=== PATIENT | female | born 1985 | race Caucasian/White ===

== ENCOUNTER → 2017-10-09 17:11 | Outpatient (REF) | payer OTHER, SELFPAY | LOC: LAB 17:11 | PROVIDERS: Visit Provider Nurse Practitioner Obstetrics & Gynecology | DX: Z34.90 Encounter for supervision of normal pregnancy, unspecified, unspecified trimester (principal) | CPT/HCPCS: 86403 ==

== ENCOUNTER 2017-10-16 10:37 | Outpatient (CLI) | payer OTHER, SELFPAY ==
[2017-10-16 11:06] VITALS: BP 145/76; PULSE 116; RESP 20; O2SAT 100; BMI 46.1
== END 2017-10-16 11:15 | disposition home or self-care (01) ==
LOC: OBOUT 10:39 → OB 10:41
PROVIDERS: PCP Internal Medicine Adolescent Medicine; Visit Provider Nurse Practitioner Obstetrics & Gynecology
DX: O26.893 Other specified pregnancy related conditions, third trimester (principal); Z3A.37 37 weeks gestation of pregnancy; O76 Abnormality in fetal heart rate and rhythm complicating labor and delivery
CPT/HCPCS: 59025

== ENCOUNTER → 2017-10-23 11:29 | Outpatient (CLI) | payer OTHER, SELFPAY ==
[2017-10-23 11:14] LABS: Basophils % 0.2 % (0.1-2.0); Eosinophils # 0.4 K/mm3 (0.0-0.4); Eosinophils % 3.3 % (0.1-12.0); Hematocrit 34.9 % (37.0-47.0); Hemoglobin 11.4 g/dL (12.2-16.2); Mean Corpuscular HGB Conc 32.7 g/dL (31.8-35.4); Mean Corpuscular Hemoglobin 27.7 pg (27.0-31.2); Mean Corpuscular Volume 84.8 fl (81-99); Mean Platelet Volume 8.4 fl (7.4-10.4); Monocytes # 0.6 K/mm3 (0.1-1.0); Monocytes % 5.6 % (1.7-9.3); Neutrophils # 7.9 K/mm3 (1.8-7.8); Neutrophils % 72.8 % (37.0-80.0); Platelet Count 223 K/mm3 (142-424); Red Blood Count 4.11 M/mm3 (4.20-5.40); Red Cell Distribution Width 14.4 % (11.5-17.5); White Blood Count 10.8 K/mm3 (4.8-10.8)
[2017-10-23 12:44] LABS: Alanine Aminotransferase 12 U/L (12-78); Anion Gap 15.1 mEq/L (5-15); Aspartate Amino Transferase 13 U/L (15-37); Blood Urea Nitrogen 10 mg/dL (7-18); Carbon Dioxide 21 mmol/L (21.0-32.0); Chloride 105 mmol/L (98-107); Creatinine,Serum 0.56 mg/dL (0.55-1.02); Estimated Glomerular Filt Rate 127 ml/min (>60); GFR (African American) 154 ML/MIN (>60); Glucose 95 mg/dL (74-106); Potassium 4.1 mmoL/L (3.5-5.1); Sodium 137 mmol/L (136-145); Uric Acid 5.2 mg/dL (2.6-7.2)
[2017-10-23 13:05] LABS: Activated Partial Thrombo Time 25.4 seconds (23.6-34.0); Fibrinogen 500 mg/dL (204-500); INR 0.91 (0.9-1.1); Prothrombin Time 9.8 seconds (9.4-11.8)
[2017-10-23 13:09] LABS: D-Dimer 777 (0-400)
[2017-10-26 09:15] LABS: Creatinine, Urine 88.2 mg/dL (Not Estab.)
[2017-10-26 19:00] LABS: Creatinine, Ur 24hr 1411 mg/24 hr (800-1800)
== END ==
PROVIDERS: Family Provider Internal Medicine Adolescent Medicine; PCP Internal Medicine Adolescent Medicine; Visit Provider Nurse Practitioner Obstetrics & Gynecology
DX: Z34.90 Encounter for supervision of normal pregnancy, unspecified, unspecified trimester (principal); Z3A.38 38 weeks gestation of pregnancy
CPT/HCPCS: 36415; 80048; 84450; 84460; 84550; 85025; 85378; 85384; 85610; 85730

== ENCOUNTER → 2017-10-24 14:42 | Outpatient (CLI) | payer OTHER, SELFPAY | PROVIDERS: PCP Internal Medicine Adolescent Medicine; Visit Provider Nurse Practitioner Obstetrics & Gynecology | DX: Z34.90 Encounter for supervision of normal pregnancy, unspecified, unspecified trimester (principal) ==

== ENCOUNTER 2017-10-25 09:23 | Inpatient (IN) | payer OTHER, SELFPAY ==
[2017-10-25 09:50] VITALS: BMI 46.1
[2017-10-25 10:25] LABS: Basophils % 0.3 % (0.1-2.0); Eosinophils # 0.3 K/mm3 (0.0-0.4); Eosinophils % 2.8 % (0.1-12.0); Hematocrit 33.1 % (37.0-47.0); Lymphocytes # 1.7 K/mm3 (0.7-4.5); Lymphocytes % 17.9 K/mm3 (10-50); Mean Corpuscular HGB Conc 33.2 g/dL (31.8-35.4); Mean Corpuscular Hemoglobin 27.9 pg (27.0-31.2); Mean Corpuscular Volume 84.2 fl (81-99); Mean Platelet Volume 8.3 fl (7.4-10.4); Monocytes # 0.4 K/mm3 (0.1-1.0); Monocytes % 4.3 % (1.7-9.3); Neutrophils % 74.7 % (37.0-80.0); Platelet Count 221 K/mm3 (142-424); Red Blood Count 3.93 M/mm3 (4.20-5.40); Red Cell Distribution Width 14.3 % (11.5-17.5); White Blood Count 9.4 K/mm3 (4.8-10.8)
[2017-10-25 10:59] VITALS: BP 117/77; PULSE 100; RESP 16; TEMP 36.5; O2SAT 95; BMI 46.1
--- NOTE | 2017-10-25 11:12 | HMH.LABNOT ---
Labor Note - Subjective: Date: 10/25/17 Time: 11:12 irregular contractions - Objective: Cervical Dilation:: 2-3 Effacement:: 75% Station: -1 Membranes: articially ruptured - Fetus: Monitoring?: Yes monitoring type:: Internal and External Comment:: I inserted an internal pressure catheter - Assessment: Labor progressing?: Yes Cephalopelvic disproportion?: No Patient Problems: All Active Problems (Acute) Comment:: She was seen in my office this morning and had increased blood pressure. She thought she was leaking fluid. She was having some fluid leakage every time she had a contraction. I suspect she may have had a high leak. She was group B streptococcus positive and was concerned about this. Since she is 2-3 cm and 75% effaced we elected to enter labor. She is having regular contractions every 6-7 minutes on arrival. - Plan: Anesthesia for epidural?: Yes Continue to labor down?: Yes Plan for ?: No Continue to monitor?: Yes Start pushing?: No
--- NOTE | 2017-10-25 12:50 | P.PN_ITS ---
[facility] Anesthesia Checklist - Patient Identification Patient Identification: Arm Band - Structural Data Admitted From: Home Planned Operative Procedure/s: labor epidural Consent for Planned Operative Procedure(s) Verified: Yes - Additional verifications Anesthesia Reactions: No - Airway Assessment C-Spine Mobility Assessed: Yes TMJ Mobility Assessed: Yes Dentition: Good Dentition - Neurological Assessment Level of Consciousness: Awake, Alert - Anesthesia Plan Anesthesia Risk discussed: Yes Anesthesia Plan: Verified ASA Class: II Anesthesia Type: Epidural [facility] Anesthesia HX I have reviewed the patient's past medical history: Yes Medical History: Reports:: Hyperlipidemia, Hypertension, Renal Disease Denies:: Cancer, Diabetes Mellitus Type 1, MRSA Other Medical History: Reports: Hypothyroidism Laterality Cases: Right: Other Other Surgeries: Yes: Other Amputation: No Fractures: Yes (Broken Ankle 2007) *Family Hx:: Hypertension, Cancer, Diabetes
--- NOTE | 2017-10-25 14:38 | HMH.LABNOT ---
Labor Note - Subjective: Date: 10/25/17 Time: 14:38 regular contraction - Objective: NST:: Reactive Contractions:: every 2-3 minutes Cervical Dilation:: 4 Effacement:: 80% Station: -1 Membranes: ruptured, articially ruptured - Fetus: Monitoring?: Yes monitoring type:: Internal and External Comment:: I applied a scalp clip and reinserted a new pressure catheter. - Assessment: Labor progressing?: Yes Cephalopelvic disproportion?: No Patient Problems: All Active Problems (Acute) - Plan: Anesthesia for epidural?: Yes Continue to labor down?: Yes Plan for ?: No Continue to monitor?: Yes Start pushing?: No
[2017-10-25 15:25] LABS: Microscopic, Urine URINE MICROSCOPIC (MICROSCOPIC)
[2017-10-25 15:29] LABS: Appearance,Urine CLEAR (Clear); Bilirubin,Urine Negative (Negative); Blood, Urine Negative (Negative); Color,Urine YELLOW (Yellow); Glucose,Urine (UA) Negative (Negative); Ketones,Urine Negative (Negative); Leukocyte Esterase,Urine Negative (Negative); Nitrate,Urine Negative (Negative); Protein,Urine Negative (Negative); Specific Gravity, Urine 1.015 (1.005-1.030); Urobilinogen,Urine 0.2 EU/dl (0.2)
[2017-10-25 16:08] LABS: Bacteria,Urine Trace /lpf
--- NOTE | 2017-10-25 17:25 | HMH.LABNOT ---
Labor Note - Subjective: Date: 10/25/17 Time: 17:25 regular contraction - Objective: NST:: Reactive Contractions:: every 2-3 minutes Cervical Dilation:: 6 Effacement:: 100% Station: 0 Membranes: ruptured, articially ruptured - Fetus: Monitoring?: Yes monitoring type:: Internal - Assessment: Labor progressing?: Yes Cephalopelvic disproportion?: No Patient Problems: All Active Problems (Acute) - Plan: Anesthesia for epidural?: Yes Continue to labor down?: Yes Plan for ?: No Continue to monitor?: Yes Start pushing?: No Continue pushing?: No
[2017-10-25 19:36] LABS: Cord Blood PH 7.28 (7.35-7.45)
--- NOTE | 2017-10-25 19:38 | HMH.DN ---
- Delivery Note Delivery Date:: 10/25/17 Delivery Time:: 19:23 Anesthesia Type: Epidural Was labor medically induced?: No Infant delivered prior to 39 weeks?: No Infant Gender: Male at 1 minute: 6 at 5 minutes: 8 AF:: Clear fluid LAC or MLE?: LAC (First-degree tear) Delivery Procedure:: She is a 31-year-old 3 para 2 who is 39 weeks gestational age. She was seen in my office and was having leakage of fluid and occasional contractions. She was found to be 2-3 cm dilated. As result of that she was admitted for labor and delivery. She was started on IV oxytocin and had her membranes ruptured. She progressed to full dilation and delivered spontaneously a liveborn male child at 7:23 PM in the evening of October 25, 2017. I deliver the head the anterior shoulder then delivered followed by the rest of the 's body atraumatically. The oropharynx and nasopharynx were bulb suctioned. We let the cord to continue to pulsate for about 1 minute. We then doubly clamped the cord and cut the cord. The baby was then handed off to the nurses who assigned Apgars of 6 at 1 minute and 8 at 5 minutes. We then obtain cord blood as well as cord pH. The pH was 7.28. Using gentle traction on the cord and countertraction on the fundus I was able to easily deliver the placenta intact. He had a normal three-vessel cord. She had a small first-degree perineal laceration that was repaired with interrupted 3-0 Vicryl Rapide suture. She has O+ blood, she is rubella immune and group B streptococcus positive. She did receive IV antibiotics while in labor. She plans to breast-feed. Estimated blood loss was approximately 400 cc. Placental Delivery Description: Spontaneous
--- NOTE | 2017-10-25 19:41 | HMH.OBAPHP ---
OB - H&P: HPI Antepartum - History of Present Illness Chief complaint: Leaking fluid and occasional contractions - History of Present Criteria for establishing EDC:: LMP confirmed by 2nd trimester US care: good care Ultrasounds: normal 1st trimester US Obstetrical complications: gestational hypertension Medical complications: none Planning to breastfeed?: Yes - Labs Blood type: O (+) positive Rubella: immune RPR/VDRL: nonreactive GBS status: positive HBsAG: negative [facility] History Medical History: Reports:: Hyperlipidemia, Hypertension, Renal Disease Denies:: Cancer, Diabetes Mellitus Type 1, MRSA Other Medical History: Reports: Hypothyroidism Laterality Cases: Right: Other Other Surgeries: Yes: Other Amputation: No Fractures: Yes (Broken Ankle 2007) - *Social History Educational Level: Completed College Smoking Status: Never smoker Alcohol Intake: never Substance Use Type: denies use Occupational Status: employed Housing: house Household Members: spouse, children - Psychiatric History Expresses thoughts of harming self/others: None Suicide Plan Description: No Plan *Family Hx:: Hypertension, Cancer, Diabetes 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 Review of Systems - Review of Systems Review of systems:: pertinent systems reviewed and negative unless documented below Meds Home Medications Medication Instructions Recorded Confirmed Type levothyroxine 25 mcg tablet 25 mcg PO QDAY tab 10/04/17 10/25/17 History 1 tab PO QDAY 10/04/17 10/25/17 History vitamin,calcium,sqlqrdpt-uvrh-demfk acid tablet ranitidine 75 mg tablet 75 mg PO BID PRN 10/04/17 10/25/17 History Labetalol HCl [Normodyne 200mg 200 mg PO BID 10/16/17 10/25/17 History tablet] Fluticasone Propionate [Flonase 1 spr NS DAILY 10/25/17 10/25/17 History 50mcg nasal spray 16gm] Loratadine [Claritin 10mg Tablet] 0 mg PO DAILY 10/25/17 10/25/17 History Tamsulosin HCl [Flomax 0.4mg 0.4 mg PO DAILY 10/25/17 10/25/17 History capsule] Allergies Allergy/AdvReac Type Severity Reaction Status Date / Time Penicillins Allergy Intermediate I-HIVES Verified 10/04/17 13:04 OB - H&P: Exam - Physical Exam Vital signs: Temp Pulse Resp BP Pulse Ox 97.7 F 100 H 16 117/77 95 10/25/17 10:59 10/25/17 10:59 10/25/17 10:59 10/25/17 10:59 10/25/17 10:59 - Constitutional no acute distress - Routine HEENT Exam Head: Present: normocephalic - Routine Neck Exam Present: supple, full ROM - Routine Exam External: Present: normal urethra appearance OB - Results - Labs Labs: Short CBC 10/25/17 Range/Units 09:57 WBC 9.4 (4.8-10.8) K/mm3 Hgb 11.0 L (12.2-16.2) g/dL Hct 33.1 L (37.0-47.0) % Plt Count 221 (142-424) K/mm3 Urine 10/25/17 Range/Units 15:00 Urine Color Yellow (Yellow) Urine Appearance Clear (Clear) Urine pH 7.0 (5.0-8.5) Ur Specific [place] 1.015 (1.005-1.030) Urine Protein Negative (Negative) Urine Glucose (UA) Negative (Negative) OB - A/P Antepartum (1) Group beta Strep positive Current visit: Yes Status: Acute (2) Gestational [-induced] hypertension without significant proteinuria, complicating childbirth Current visit: Yes Status: Acute - Additional Plan Plan: expectant management, induction (We will go ahead and start oxytocin) Planning to breastfeed?: Yes
--- NOTE | 2017-10-25 19:45 | P.HP_ITS ---
OB - H&P: HPI Antepartum - History of Present Illness Chief complaint: Leaking fluid and occasional contractions - History of Present Criteria for establishing EDC:: LMP confirmed by 2nd trimester US care: good care Ultrasounds: normal 1st trimester US Obstetrical complications: gestational hypertension Medical complications: none Planning to breastfeed?: Yes - Labs Blood type: O (+) positive Rubella: immune RPR/VDRL: nonreactive GBS status: positive HBsAG: negative [facility] History Medical History: Reports:: Hyperlipidemia, Hypertension, Renal Disease Denies:: Cancer, Diabetes Mellitus Type 1, MRSA Other Medical History: Reports: Hypothyroidism Laterality Cases: Right: Other Other Surgeries: Yes: Other Amputation: No Fractures: Yes (Broken Ankle 2007) - *Social History Educational Level: Completed College Smoking Status: Never smoker Alcohol Intake: never Substance Use Type: denies use Occupational Status: employed Housing: house Household Members: spouse, children - Psychiatric History Expresses thoughts of harming self/others: None Suicide Plan Description: No Plan *Family Hx:: Hypertension, Cancer, Diabetes 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 Review of Systems - Review of Systems Review of systems:: pertinent systems reviewed and negative unless documented below Meds Home Medications Medication Instructions Recorded Confirmed Type levothyroxine 25 mcg tablet 25 mcg PO QDAY tab 10/04/17 10/25/17 History 1 tab PO QDAY 10/04/17 10/25/17 History vitamin,calcium,beizqdhc-ziry-ttlwp acid tablet ranitidine 75 mg tablet 75 mg PO BID PRN 10/04/17 10/25/17 History Labetalol HCl [Normodyne 200mg 200 mg PO BID 10/16/17 10/25/17 History tablet] Fluticasone Propionate [Flonase 1 spr NS DAILY 10/25/17 10/25/17 History 50mcg nasal spray 16gm] Loratadine [Claritin 10mg Tablet] 0 mg PO DAILY 10/25/17 10/25/17 History Tamsulosin HCl [Flomax 0.4mg 0.4 mg PO DAILY 10/25/17 10/25/17 History capsule] Allergies Allergy/AdvReac Type Severity Reaction Status Date / Time Penicillins Allergy Intermediate I-HIVES Verified 10/04/17 13:04 OB - H&P: Exam - Physical Exam Vital signs: Temp Pulse Resp BP Pulse Ox 97.7 F 100 H 16 117/77 95 10/25/17 10:59 10/25/17 10:59 10/25/17 10:59 10/25/17 10:59 10/25/17 10:59 - Constitutional no acute distress - Routine HEENT Exam Head: Present: normocephalic - Routine Neck Exam Present: supple, full ROM - Routine Exam External: Present: normal urethra appearance OB - Results - Labs Labs: Short CBC 10/25/17 Range/Units 09:57 WBC 9.4 (4.8-10.8) K/mm3 Hgb 11.0 L (12.2-16.2) g/dL Hct 33.1 L (37.0-47.0) % Plt Count 221 (142-424) K/mm3 Urine 10/25/17 Range/Units 15:00 Urine Color Yellow (Yellow) Urine Appearance Clear (Clear) Urine pH 7.0 (5.0-8.5) Ur Specific [place] 1.015 (1.005-1.030) Urine Protein Negative (Negative) Urine Glucose (UA) Negative (Negative) OB - A/P Antepartum (1) Group beta Strep positive Current visit: Yes Status: Acute
[2017-10-26 08:00] VITALS: BP 132/83; PULSE 90; RESP 18; TEMP 36.7; O2SAT 100
[2017-10-26 10:41] LABS: Hematocrit 29.5 % (37.0-47.0); Hemoglobin 9.7 g/dL (12.2-16.2)
--- NOTE | 2017-10-26 11:15 | HMH.ACPN2 ---
Internal Medicine - PN: Subj *Date: 10/26/17 *Time: 11:15 Interval history: She is doing well this morning. She is eating and drinking and ambulating. She is breast-feeding. Exam Vital signs and Labs for Last 24 Hours: Temp Pulse Resp BP Pulse Ox 97.7 F 100 H 16 117/77 95 10/25/17 10:59 10/25/17 10:59 10/25/17 10:59 10/25/17 10:59 10/25/17 10:59 Laboratory Results - last 24 hr 10/25/17 15:00: Urine Color Yellow, Urine Appearance Clear, Urine pH 7.0, Ur Specific [place] 1.015, Urine Protein Negative, Urine Glucose (UA) Negative, Urine Ketones Negative, Urine Blood Negative, Urine Nitrate Negative, Urine Bilirubin Negative, Urine Urobilinogen 0.2, Ur Leukocyte Esterase Negative, Urine RBC None, Urine WBC None, Ur Squamous Epith Cells None, Urine Bacteria Trace 10/25/17 19:30: Cord ABG pH 7.28 L I & O for Last 24 hours: Intake & Output 10/23/17 10/24/17 10/25/17 10/26/17 11:59 11:59 11:59 11:59 Weight 286 lb - Constitutional no acute distress Assessment and Plan (1) Group beta Strep positive Current visit: Yes Status: Acute Category: Medical Code(s): B95.1 - Streptococcus, group B, as the cause of diseases classified elsewhere (2) Gestational [-induced] hypertension without significant proteinuria, complicating childbirth Current visit: Yes Status: Acute Category: Medical Code(s): O13.4 - Gestational [-induced] hypertension without significant proteinuria, complicating childbirth - Assessment and plan all Dx Assessment and Plan for all problems:: She is doing very well and we will plan to send her home tomorrow.
--- NOTE | 2017-10-26 11:18 | P.PN_ITS ---
Internal Medicine - PN: Subj *Date: 10/26/17 *Time: 11:15 Interval history: She is doing well this morning. She is eating and drinking and ambulating. She is breast-feeding. Exam Vital signs and Labs for Last 24 Hours: Temp Pulse Resp BP Pulse Ox 97.7 F 100 H 16 117/77 95 10/25/17 10:59 10/25/17 10:59 10/25/17 10:59 10/25/17 10:59 10/25/17 10:59 Laboratory Results - last 24 hr 10/25/17 15:00: Urine Color Yellow, Urine Appearance Clear, Urine pH 7.0, Ur Specific [place] 1.015, Urine Protein Negative, Urine Glucose (UA) Negative, Urine Ketones Negative, Urine Blood Negative, Urine Nitrate Negative, Urine Bilirubin Negative, Urine Urobilinogen 0.2, Ur Leukocyte Esterase Negative, Urine RBC None, Urine WBC None, Ur Squamous Epith Cells None, Urine Bacteria Trace 10/25/17 19:30: Cord ABG pH 7.28 L I & O for Last 24 hours: Intake & Output 10/23/17 10/24/17 10/25/17 10/26/17 11:59 11:59 11:59 11:59 Weight 286 lb - Constitutional no acute distress Assessment and Plan (1) Group beta Strep positive Current visit: Yes Status: Acute Category: Medical Code(s): B95.1 - Streptococcus, group B, as the cause of diseases classified elsewhere (2) Gestational [-induced] hypertension without significant proteinuria , complicating childbirth Current visit: Yes Status: Acute Category: Medical Code(s): O13.4 - Gestational [-induced] hypertension without significant proteinuria, complicating childbirth - Assessment and plan all Dx Assessment and Plan for all problems:: She is doing very well and we will plan to send her home tomorrow.
[2017-10-26 19:45] VITALS: BP 132/79; PULSE 87; RESP 18; TEMP 36.7; O2SAT 98
[2017-10-27 06:05] VITALS: BP 119/77; PULSE 83; RESP 18; TEMP 36.7
--- NOTE | 2017-10-27 09:12 | HMH.VDDC ---
DS: Providers Date of admission: 10/25/17 09:23 Primary care physician: Renato Beard MD Admitting clinician: Josemanuel Victoria Attending physician on admission: Josemanuel Victoria Attending physician on discharge: Maricel Zapata Discharging clinician: Maricel Zapata Anticipated date of discharge: 10/27/17 DS: Diagnosis - Discharge Diagnosis (1) Normal vaginal delivery of third Status: Acute (2) Anemia associated with acute blood loss Status: Acute (3) Gestational [-induced] hypertension without significant proteinuria, complicating childbirth Status: Acute DS: Medications - Discharge Medications Prescriptions: New Ibuprofen [Motrin 400mg tablet] 400 mg PO Q4HP PRN tablet PRN Reason: Mild To Moderate Pain Sennosides/Docusate Sodium [Senokot-S Tablet] 1 tab PO BIDP PRN tablet PRN Reason: Constipation Acetaminophen [Acetaminophen 325mg tab] 650 mg PO Q4HP PRN tablet PRN Reason: Mild To Moderate Pain Continue levothyroxine 25 mcg tablet 25 mcg PO QDAY tab vitamin,calcium,qvvyyzkt-xtlx-jinmj acid tablet 1 tab PO QDAY ranitidine 75 mg tablet 75 mg PO BID PRN PRN Reason: Acid Reflux Tamsulosin HCl [Flomax 0.4mg capsule] 0.4 mg PO DAILY Loratadine [Claritin 10mg Tablet] 0 mg PO DAILY Fluticasone Propionate [Flonase 50mcg nasal spray 16gm] 1 spr NS DAILY Discontinued Labetalol HCl [Normodyne 200mg tablet] 200 mg PO BID OB - DS: Summary Hospital course: Ms. Varela is a 31 year old female - Peripartum Data Delivery method: spontaneous vaginal delivery complications: none - Status at Discharge Functional status at discharge: independent ambulation Overall status at discharge: patient is progressing back to baseline - Time Spent with Patient Total time spent providing and/or coordinating discharge services: Less than 30 minutes Exam Vital signs and Labs for Last 24 Hours: Temp Pulse Resp BP Pulse Ox 98.1 F 83 18 119/77 98 10/27/17 06:05 10/27/17 06:05 10/27/17 06:05 10/27/17 06:05 10/26/17 19:45 Laboratory Results - last 24 hr 10/26/17 10:35: Hgb 9.7 L, Hct 29.5 L I & O for Last 24 hours: Intake & Output 10/24/17 10/25/17 10/26/17 10/27/17 11:59 11:59 11:59 11:59 Weight 286 lb - Constitutional no acute distress - *Routine Abdominal Exam Present: soft, normoactive bowel sounds - *Routine Exam Comments: appropriate post-vag delivery - *Routine Extremities Exam Present: edema Comments: 1+ - *Routine Skin Exam Present: intact, dry, warm - *Routine Neurological Exam Present: normal speech Results Labs on day of discharge: Labs from last 24 hours 10/26/17 10:35 Hgb 9.7 L Hct 29.5 L - Impressions PPD #2 normal anemia (9.7) GHTN (now resolved) Hypothyroid Discharge Plan - Patient Discharge Instructions ACTIVITY: Ambulate as tolerated, No heavy lifting DIET: regular diet - Follow up Plan Follow up with: Josemanuel Victoria MD [Staff Physician] - Disposition: Home, Self-Skilled Nursing Medications: Home Medications Medication Instructions Recorded Confirmed Type levothyroxine 25 mcg tablet 25 mcg PO QDAY tab 10/04/17 10/25/17 History 1 tab PO QDAY 10/04/17 10/25/17 History vitamin,calcium,qhgfyrgb-plcv-ftqzf acid tablet ranitidine 75 mg tablet 75 mg PO BID PRN 10/04/17 10/25/17 History Labetalol HCl [Normodyne 200mg 200 mg PO BID 10/16/17 10/25/17 History tablet] Fluticasone Propionate [Flonase 1 spr NS DAILY 10/25/17 10/25/17 History 50mcg nasal spray 16gm] Loratadine [Claritin 10mg Tablet] 0 mg PO DAILY 10/25/17 10/25/17 History Tamsulosin HCl [Flomax 0.4mg 0.4 mg PO DAILY 10/25/17 10/25/17 History capsule] Prescriptions/Medication Reconciliation: No Action Tamsulosin HCl [Flomax 0.4mg capsule] 0.4 mg PO DAILY Loratadine [Claritin 10mg Tablet] 0 mg PO NEREYDA
--- NOTE | 2017-10-27 09:19 | P.DS_ITS ---
DS: Providers Date of admission: 10/25/17 09:23 Primary care physician: Renato Beard MD Admitting clinician: Josemanuel Victoria Attending physician on admission: Josemanuel Victoria Attending physician on discharge: Maricel Zapata Discharging clinician: Maricel Zapata Anticipated date of discharge: 10/27/17 DS: Diagnosis - Discharge Diagnosis (1) Normal vaginal delivery of third Status: Acute (2) Anemia associated with acute blood loss Status: Acute (3) Gestational [-induced] hypertension without significant proteinuria , complicating childbirth Status: Acute DS: Medications - Discharge Medications Prescriptions: New Ibuprofen [Motrin 400mg tablet] 400 mg PO Q4HP PRN tablet PRN Reason: Mild To Moderate Pain Sennosides/Docusate Sodium [Senokot-S Tablet] 1 tab PO BIDP PRN tablet PRN Reason: Constipation Acetaminophen [Acetaminophen 325mg tab] 650 mg PO Q4HP PRN tablet PRN Reason: Mild To Moderate Pain Continue levothyroxine 25 mcg tablet 25 mcg PO QDAY tab vitamin,calcium,kkkwxfrr-uojy-uuntt acid tablet 1 tab PO QDAY ranitidine 75 mg tablet 75 mg PO BID PRN PRN Reason: Acid Reflux Tamsulosin HCl [Flomax 0.4mg capsule] 0.4 mg PO DAILY Loratadine [Claritin 10mg Tablet] 0 mg PO DAILY Fluticasone Propionate [Flonase 50mcg nasal spray 16gm] 1 spr NS DAILY Discontinued Labetalol HCl [Normodyne 200mg tablet] 200 mg PO BID OB - DS: Summary Hospital course: Ms. Varela is a 31 year old female - Peripartum Data Delivery method: spontaneous vaginal delivery complications: none - Status at Discharge Functional status at discharge: independent ambulation Overall status at discharge: patient is progressing back to baseline - Time Spent with Patient Total time spent providing and/or coordinating discharge services: Less than 30 minutes Exam Vital signs and Labs for Last 24 Hours: Temp Pulse Resp BP Pulse Ox 98.1 F 83 18 119/77 98 10/27/17 06:05 10/27/17 06:05 10/27/17 06:05 10/27/17 06:05 10/26/17 19:45 Laboratory Results - last 24 hr 10/26/17 10:35: Hgb 9.7 L, Hct 29.5 L I & O for Last 24 hours: Intake & Output 10/24/17 10/25/17 10/26/17 10/27/17 11:59 11:59 11:59 11:59 Weight 286 lb - Constitutional no acute distress - *Routine Abdominal Exam Present: soft, normoactive bowel sounds - *Routine Exam Comments: appropriate post-vag delivery - *Routine Extremities Exam Present: edema Comments: 1+ - *Routine Skin Exam Present: intact, dry, warm - *Routine Neurological Exam Present: normal speech Results Labs on day of discharge: Labs from last 24 hours 10/26/17 10:35 Hgb 9.7 L Hct 29.5 L - Impressions PPD #2 normal anemia (9.7) GHTN (now resolved) Hypothyroid Discharge Plan - Patient Discharge Instructions ACTIVITY: Ambulate as tolerated, No heavy lifting DIET: regular diet - Follow up Plan Follow up with: Josemanuel Victoria MD [Staff Physician] - Disposition: Home, Self-[facility] Medications: Home Medications Medication Instructions Recorded Confirmed Type levothyroxine 25 mcg tablet 25 mcg PO QDAY tab
--- NOTE | 2017-10-27 12:40 | PC.NURSE ---
PT DISCHARGED AT 1240; PT WANTS TO FINISH LUNCH AND NURSE NB PRIOR TO LEAVING; PT WILL NOTIFY RN WHEN READY TO LEAVE
--- NOTE | 2017-10-27 14:00 | PC.NURSE ---
PT LEAVING UNIT AT THIS TIME; D/C HOME
--- NOTE | 2017-10-27 14:00 | PC.NURSE ---
PT LEFT UNIT AT THIS TIME
== END 2017-10-27 12:40 | disposition home or self-care (01) | DRG 775 ==
PROVIDERS: Admitting Provider Nurse Practitioner Obstetrics & Gynecology; PCP Internal Medicine Adolescent Medicine; Visit Provider Nurse Practitioner Obstetrics & Gynecology
DX: O13.3 Gestational [pregnancy-induced] hypertension without significant proteinuria, third trimester (principal); O70.0 First degree perineal laceration during delivery; Z37.0 Single live birth; Z3A.39 39 weeks gestation of pregnancy
CPT/HCPCS: 59409; 36415; 59025; 81001; 82800; 85014; 85018; 85025; 86850; C1758; J2405

== ENCOUNTER → 2017-12-12 11:56 | Outpatient (CLI) | payer OTHER, SELFPAY ==
[2017-12-12 12:51] LABS: Basophils % 0.4 % (0.1-2.0); Eosinophils # 0.3 K/mm3 (0.0-0.4); Eosinophils % 4.4 % (0.1-12.0); Hematocrit 47.2 % (37.0-47.0); Hemoglobin 14.7 g/dL (12.2-16.2); Lymphocytes # 2.5 K/mm3 (0.7-4.5); Lymphocytes % 35.4 K/mm3 (10-50); Mean Corpuscular HGB Conc 31.2 g/dL (31.8-35.4); Mean Corpuscular Hemoglobin 26.8 pg (27.0-31.2); Mean Platelet Volume 9.3 fl (7.4-10.4); Monocytes # 0.4 K/mm3 (0.1-1.0); Monocytes % 5.5 % (1.7-9.3); Neutrophils # 3.9 K/mm3 (1.8-7.8); Neutrophils % 54.3 % (37.0-80.0); Platelet Count 265 K/mm3 (142-424); Red Blood Count 5.49 M/mm3 (4.20-5.40); Red Cell Distribution Width 13.8 % (11.5-17.5); White Blood Count 7.1 K/mm3 (4.8-10.8)
[2017-12-12 13:22] LABS: Anion Gap 16.5 mEq/L (5-15); Blood Urea Nitrogen 20 mg/dL (7-18); Carbon Dioxide 25 mmol/L (21.0-32.0); Chloride 105 mmol/L (98-107); Creatinine,Serum 0.94 mg/dL (0.55-1.02); Estimated Glomerular Filt Rate 69 ml/min (>60); GFR (African American) 84 ML/MIN (>60); Glucose 97 mg/dL (74-106); Potassium 4.5 mmoL/L (3.5-5.1); Sodium 142 mmol/L (136-145)
[2017-12-12 16:50] LABS: HCG Qualitative, Serum Negative (Negative)
== END ==
PROVIDERS: PCP Internal Medicine Adolescent Medicine; Visit Provider Nurse Practitioner Obstetrics & Gynecology
DX: Z01.812 Encounter for preprocedural laboratory examination (principal); Z30.9 Encounter for contraceptive management, unspecified
CPT/HCPCS: 36415; 80048; 84703; 85025

== ENCOUNTER 2017-12-13 06:01 | Day surgery (SDC) | payer OTHER, SELFPAY ==
[2017-12-11 16:21] VITALS: BMI 41.5
[2017-12-13] VITALS (13 sets, daily range): BP systolic 121–156; BP diastolic 66–95; PULSE 48–87; RESP 16–20; TEMP 36.7–36.8; O2SAT 95–98
--- NOTE | 2017-12-13 07:08 | HMH.ANESCL ---
[facility] Anesthesia Checklist - Patient Identification Patient Identification: Arm Band, Verbal (Name & ) - Structural Data Admitted From: Home Planned Operative Procedure/s: bso Consent for Planned Operative Procedure(s) Verified: Yes Verified Documents: Surgical Consent - NPO Status Verified Time NPO: 00:00 - Chart Verification Results Verified: CBC, BMP - Additional verifications Patient : No Anesthesia Reactions: No Hx Blood Transfusions: No Blood Transfusion Reaction: No Cephalosporin Allergy: No Previous Colonoscopy: No - Cardiovascular Assessment Heart Sounds: S1 & S2 Pulse Strength: Baseline Pulse Rhythm: Regular Peripheral Edema: No - Airway Assessment C-Spine Mobility Assessed: Yes TMJ Mobility Assessed: Yes Dentition: Good Dentition - Neurological Assessment Level of Consciousness: Awake, Alert, Appropriate Hx Seizures: No Numbness or tingling in extremities: No - Anesthesia Plan Anesthesia Risk discussed: Yes Anesthesia Plan: Verified ASA Class: II Anesthesia Type: General [facility] Anesthesia HX I have reviewed the patient's past medical history: Yes Medical History: Reports:: Hyperlipidemia, Hypertension, Renal Disease Denies:: Cancer, Diabetes Mellitus Type 1, Diabetes Mellitus Type 2, Internal Pacemaker, MRSA, Seizures Other Medical History: Reports: Hypothyroidism Laterality Cases: Right: Other, Bilateral: Tonsillectomy Other Surgeries: Yes: Other. No: Pacemaker Amputation: No Fractures: Yes (Broken Ankle 2007) *Family Hx:: Hypertension, Cancer, Diabetes
--- NOTE | 2017-12-13 07:11 | P.PN_ITS ---
[facility] Anesthesia Checklist - Patient Identification Patient Identification: Arm Band, Verbal (Name & ) - Structural Data Admitted From: Home Planned Operative Procedure/s: bso Consent for Planned Operative Procedure(s) Verified: Yes Verified Documents: Surgical Consent - NPO Status Verified Time NPO: 00:00 - Chart Verification Results Verified: CBC, BMP - Additional verifications Patient : No Anesthesia Reactions: No Hx Blood Transfusions: No Blood Transfusion Reaction: No Cephalosporin Allergy: No Previous Colonoscopy: No - Cardiovascular Assessment Heart Sounds: S1 & S2 Pulse Strength: Baseline Pulse Rhythm: Regular Peripheral Edema: No - Airway Assessment C-Spine Mobility Assessed: Yes TMJ Mobility Assessed: Yes Dentition: Good Dentition - Neurological Assessment Level of Consciousness: Awake, Alert, Appropriate Hx Seizures: No Numbness or tingling in extremities: No - Anesthesia Plan Anesthesia Risk discussed: Yes Anesthesia Plan: Verified ASA Class: II Anesthesia Type: General [facility] Anesthesia HX I have reviewed the patient's past medical history: Yes Medical History: Reports:: Hyperlipidemia, Hypertension, Renal Disease Denies:: Cancer, Diabetes Mellitus Type 1, Diabetes Mellitus Type 2, Internal Pacemaker, MRSA, Seizures Other Medical History: Reports: Hypothyroidism Laterality Cases: Right: Other, Bilateral: Tonsillectomy Other Surgeries: Yes: Other. No: Pacemaker Amputation: No Fractures: Yes (Broken Ankle 2007) *Family Hx:: Hypertension, Cancer, Diabetes
--- NOTE | 2017-12-13 08:21 | HMH.OPNOTE ---
Date of procedure: 12/13/17 Pre-op Diagnosis:: Desire for sterilization Post-op Diagnosis:: Desire for sterilization Procedure performed:: Laparoscopic bilateral salpingectomy Surgeon:: Josemanuel Victoria MD Anesthesia: STACY Estimated blood loss (mL): 25 Clinical Note:: She is a 32-year-old 3 para 3 who is about 6 weeks . She expressed desire for sterilization. The risks and benefits as well as the irreversibility of bilateral salpingectomy were discussed with the patient. Operative findings:: Had a normal-appearing anteverted uterus. The tubes and ovaries appeared normal. The upper abdomen was visualized and appeared normal. The deep pelvis appear normal. Both tubes were followed to their fimbriated end and were normal. The bladder flap was normal. The appendix is visualized and appeared normal. Operative note:: She was taken to the operating room where general anesthesia was found to be adequate. She was prepped and draped in normal sterile fashion in the semilithotomy position. A weighted speculum was placed in the vagina and the anterior lip of the cervix was grasped with a tenaculum. Alvarez dilators used to dilate the cervix to approximately 4 mm. I then inserted a Leah uterine manipulator and insufflated the balloon. I injected 10 cc of 0.5% ropivacaine around the umbilicus and made a small incision within the umbilicus. I then inserted a Veress needle into the abdominal cavity. The abdominal cavity was insufflated with carbon dioxide gas to a pressure of 20 mmHg. Then inserted a 5 mm trocar under direct vision. I injected through and through at the pubic hairline, made a small incision here and inserted an 8 mm trocar under direct vision. I then identified the inferior epigastric arteries, went lateral to these and injected through and through. I inserted a 5 mm trocar here under direct vision. I then grasped the left tube close to the cornua and using cautery I cauterized along the tube adjacent to the cornea. I then cut through the tube adjacent to the cornea. I then grasped the distal end of the tube and using harmonic scalpel I cut along the mesosalpinx. The tube was then removed. This was similar performed on the patient's right side. There is a small amount of ooze from the fundus of the uterus where I touch the uterus with the harmonic scalpel and I elected to place a large piece of Surgicel over this area. After once again assuring hemostasis we then injected approximately 30 cc of 0.5% ropivacaine into the pelvis. The gas was out of the abdomen and once again hemostasis was assured. We then removed the secondary trochars under direct vision. The camera was then removed. The 8 mm trocar site was then closed deeply with 2-0 Vicryl suture followed by interrupted subcuticular 4-0 Monocryl suture. The 5 mm trocar sites were closed with septated or 4-0 Monocryl suture. Sterile dressings were applied. The patient tolerated the procedure well and was taken to the recovery room in excellent condition. All sponge instrument and needle counts were correct. The estimated blood loss was less than 25 cc. Condition: stable Disposition: PACU Complications:: None
--- NOTE | 2017-12-13 08:31 | P.PN_ITS ---
[facility] Anesthesia Record Part I Intake, IV Amount: 700 Estimated blood loss (mL): 25 Urine output (mL): 20 Blood Products used (#): none Blood Pressure: 154/76 SaO2: 95 Pulse Rate: 72 Respiratory Rate: 18 Temperature: 98.2 F Patient is:: Drowsy, Stable Stable to PACU at:: 08:30
--- NOTE | 2017-12-13 08:32 | P.PN_ITS ---
[facility] Anesthesia Record Part II Discharge Time: 09:00 Destination: Surgical Day Care (OP Surgery) PACU nurse assessment reviewed?: Yes Patient Condition:: Good Anesthesia Complications:: None
== END 2017-12-13 10:20 | disposition home or self-care (01) ==
LOC: OR 06:01
PROVIDERS: Family Provider Internal Medicine Adolescent Medicine; PCP Internal Medicine Adolescent Medicine; Visit Provider Nurse Practitioner Obstetrics & Gynecology
PROC: (CPT 58661; principal; 2017-12-13 07:30)
DX: Z30.2 Encounter for sterilization (principal)
CPT/HCPCS: 58661; 96374; J0131; J2405; J2710

== ENCOUNTER → 2018-03-13 08:10 | Outpatient (CLI) | payer OTHER, SELFPAY ==
--- NOTE | 2018-03-13 08:16 | US_ITS ---
US gallbladder HISTORY: Right upper quadrant pain nausea and vomiting ITS.REASON: EPIGASTRIC PAIN ORDERING PHYSICIAN: Lg Walker MD PATIENT AGE: 32 years Comparison: None FINDINGS: PANCREAS: Unremarkable. No obvious mass or abnormal fluid collection. No ductal dilatation LIVER: No focal liver lesions demonstrated. Homogeneous echogenicity. No intrahepatic biliary ductal dilatation evident RIGHT KIDNEY: Unremarkable. Normal size and echogenicity. No hydronephrosis. Small right peripelvic renal cyst at 11 mm GALLBLADDER: No gallstones, gallbladder wall thickening, pericholecystic fluid, or biliary dilatation. IMPRESSION: Negative gallbladder/right upper quadrant ultrasound
--- NOTE | 2018-03-13 08:16 | FL_ITS ---
FL upper GI esophagus w/air HISTORY: ITS.REASON: EPIGASTRIC PAIN ORDERING PHYSICIAN: Lg Walker MD PATIENT AGE: 32 years Comparison: None FINDINGS: The esophagus, stomach, and duodenum have an unremarkable appearance. There is a small sliding hiatal hernia. No ulcer or mass evident. No mucosal abnormalities apparent. There is normal peristalsis. The duodenal C-loop is nondisplaced. Reflux was not demonstrated during the exam FLUOROSCOPY TIME : 1 minute and 48 seconds. IMPRESSION: Small sliding hiatal hernia otherwise negative upper GI
== END ==
PROVIDERS: Family Provider Internal Medicine Adolescent Medicine; PCP Internal Medicine Adolescent Medicine; Visit Provider Surgery
DX: R10.13 Epigastric pain (principal); R13.10 Dysphagia, unspecified
CPT/HCPCS: 74241; 76705

== ENCOUNTER → 2018-04-16 08:02 | Outpatient (CLI) | payer OTHER, SELFPAY ==
[2018-04-16 09:48] LABS: Alanine Aminotransferase 28 U/L (12-78); Albumin Level 4.1 gm/dL (3.4-5.0); Albumin/Globulin Ratio 1.3 (1.1-1.8); Alkaline Phosphatase 134 U/L (46-116); Anion Gap 14.4 mEq/L (5-15); Aspartate Amino Transferase 17 U/L (15-37); Bilirubin,Total 0.4 mg/dL (0.2-1.0); Blood Urea Nitrogen 18 mg/dL (7-18); Calcium 9.3 mg/dL (8.5-10.1); Carbon Dioxide 25 mmol/L (21.0-32.0); Chloride 108 mmol/L (98-107); Chol/HDL Ratio 4.7 (1-3.5); Cholesterol 221 mg/dL (140-200); Creatinine,Serum 0.82 mg/dL (0.55-1.02); Estimated Glomerular Filt Rate 81 ml/min (>60); GFR (African American) 98 ML/MIN (>60); Globulin 3.2 gm/dl (1.3-3.2); Glucose 113 mg/dL (74-106); HDL Cholesterol 47 mg/dL (29-89); LDL Cholesterol 148 mg/dL (0-130); Potassium 4.4 mmoL/L (3.5-5.1); Sodium 143 mmol/L (136-145); Thyroid Stimulating Hormone 2.18 uIU/ml (0.358-3.740); Total Protein,Serum 7.3 gm/dL (6.4-8.2); Triglycerides 131 mg/dL (30-200); VLDL Cholesterol 26 mg/dL (0-40)
[2018-04-16 10:54] LABS: Basophils % 0.5 % (0.1-2.0); Eosinophils # 0.2 K/mm3 (0.0-0.4); Eosinophils % 2.4 % (0.1-12.0); Hematocrit 46.4 % (37.0-47.0); Hemoglobin 14.8 g/dL (12.2-16.2); Lymphocytes # 1.7 K/mm3 (0.7-4.5); Lymphocytes % 24.3 K/mm3 (10-50); Mean Corpuscular HGB Conc 31.9 g/dL (31.8-35.4); Mean Corpuscular Hemoglobin 26.6 pg (27.0-31.2); Mean Corpuscular Volume 83.4 fl (81-99); Mean Platelet Volume 10.6 fl (7.4-10.4); Monocytes # 0.4 K/mm3 (0.1-1.0); Monocytes % 5.8 % (1.7-9.3); Neutrophils # 4.7 K/mm3 (1.8-7.8); Neutrophils % 66.9 % (37.0-80.0); Platelet Count 237 K/mm3 (142-424); Red Blood Count 5.57 M/mm3 (4.20-5.40); Red Cell Distribution Width 13.7 % (11.5-17.5)
== END ==
PROVIDERS: Visit Provider Nurse Practitioner Family
DX: E78.1 Pure hyperglyceridemia (principal); E03.9 Hypothyroidism, unspecified; T73.2XXA Exhaustion due to exposure, initial encounter
CPT/HCPCS: 36415; 80053; 80061; 84443; 85025

== ENCOUNTER → 2018-07-01 15:47 | Outpatient (CLI) | payer OTHER, SELFPAY ==
--- NOTE | 2018-07-01 15:51 | MR_ITS ---
MR head/brain wo/w con HISTORY: Headache with dizziness, nausea, blurred vision, left sinus tach minus ITS.REASON: VERTIGO, [place]STAGMUS ORDERING PHYSICIAN: Renato Beard MD PATIENT AGE: 32 years Comparison: None TECHNIQUE: Standard multiplanar multiecho sequences are performed without and with gadolinium enhancement. FINDINGS: No midline shift, mass effect, intracranial hemorrhage, hydrocephalus, or acute infarction is evident. No enhancing lesions are evident. No intra or extra-axial masses. No large aneurysms. There is normal mejia-white matter differentiation. There is a small focus of increased T2 signal within the occipital lobe on the left just posterior to the occipital horn of the lateral ventricle. This measures approximately 3 mm and is nonspecific. No other white matter abnormalities are evident. The pituitary has an unremarkable appearance as does the optic chiasm. No cerebellar ectopia. The cerebellopontine angles, cerebellum, and brainstem are unremarkable. No mastoid effusion or sinus air-fluid level IMPRESSION: 1. No acute intracranial findings. 2. Small T2 white matter hyperintensity in the left occipital lobe. This is of questioned clinical significance and nonspecific and could be due to small gliotic focus or small area of demyelinization. The findings are not typical for multiple sclerosis although this is a common area for MS involvement. Therefore, correlation with clinical parameters are needed.
--- NOTE | 2018-07-01 17:10 | HMH.ITSHM ---
levothyroxine 0.25mg prilosec 20mg flonase spray krill oil xyzal
== END ==
PROVIDERS: Family Provider Internal Medicine Adolescent Medicine; PCP Internal Medicine Adolescent Medicine; Visit Provider Internal Medicine Adolescent Medicine
DX: R42 Dizziness and giddiness (principal); H55.00 Unspecified nystagmus
CPT/HCPCS: 70553; A9576

== ENCOUNTER → 2018-08-08 14:58 | Outpatient (CLI) | payer OTHER, SELFPAY ==
[2018-08-08 15:50] LABS: Basophils % 0.3 % (0.1-2.0); Eosinophils # 0.1 K/mm3 (0.0-0.4); Eosinophils % 2.1 % (0.1-12.0); Hematocrit 41.7 % (37.0-47.0); Hemoglobin 13.4 g/dL (12.2-16.2); Lymphocytes # 2.3 K/mm3 (0.7-4.5); Lymphocytes % 34.8 K/mm3 (10-50); Mean Corpuscular Hemoglobin 27.6 pg (27.0-31.2); Mean Corpuscular Volume 86.3 fl (81-99); Mean Platelet Volume 9.8 fl (7.4-10.4); Monocytes # 0.3 K/mm3 (0.1-1.0); Monocytes % 4.3 % (1.7-9.3); Neutrophils # 3.9 K/mm3 (1.8-7.8); Neutrophils % 58.6 % (37.0-80.0); Platelet Count 237 K/mm3 (142-424); Red Blood Count 4.84 M/mm3 (4.20-5.40); Red Cell Distribution Width 14.3 % (11.5-17.5); White Blood Count 6.7 K/mm3 (4.8-10.8)
[2018-08-08 17:09] LABS: Alanine Aminotransferase 21 U/L (12-78); Albumin Level 3.9 gm/dL (3.4-5.0); Albumin/Globulin Ratio 1.2 (1.1-1.8); Alkaline Phosphatase 137 U/L (46-116); Anion Gap 15.9 mEq/L (5-15); Aspartate Amino Transferase 14 U/L (15-37); Bilirubin,Total 0.3 mg/dL (0.2-1.0); Blood Urea Nitrogen 15 mg/dL (7-18); Calcium 9.2 mg/dL (8.5-10.1); Carbon Dioxide 26 mmol/L (21.0-32.0); Chloride 105 mmol/L (98-107); Creatinine,Serum 0.94 mg/dL (0.55-1.02); Estimated Glomerular Filt Rate 69 ml/min (>60); GFR (African American) 84 ML/MIN (>60); Globulin 3.3 gm/dl (1.3-3.2); Glucose 103 mg/dL (74-106); Potassium 3.9 mmoL/L (3.5-5.1); Sodium 143 mmol/L (136-145); Thyroid Stimulating Hormone 0.76 uIU/ml (0.358-3.740); Total Protein,Serum 7.2 gm/dL (6.4-8.2)
[2018-08-11 04:56] LABS: Vitamin B12 1468 pg/mL (232-1245)
[2018-08-11 12:07] LABS: Vitamin D 25 Hydroxy 36.7 ng/mL (30.0-100.0)
== END ==
PROVIDERS: Visit Provider Nurse Practitioner Family
DX: E03.9 Hypothyroidism, unspecified (principal); E78.2 Mixed hyperlipidemia; R53.81 Other malaise; H81.10 Benign paroxysmal vertigo, unspecified ear
CPT/HCPCS: 36415; 80053; 82607; 82652; 84443; 85025

== ENCOUNTER → 2019-03-17 08:04 | Outpatient (CLI) | payer OTHER, SELFPAY ==
--- NOTE | 2019-03-17 08:09 | XR_ITS ---
XR hip LT 2-3V w/pelvis HISTORY: ORDERING PHYSICIAN: Nancy Rubio APRN PATIENT AGE: 33 years COMPARISON: None FINDINGS: No fracture or dislocation is evident. No significant degenerative change. No lytic or blastic change. Unremarkable soft tissues IMPRESSION: Negative hip
--- NOTE | 2019-03-17 08:09 | XR_ITS ---
XR hip RT 2-3V w/pelvis HISTORY: ITS.REASON: LOW BACK PAIN,LILIA HIP PAIN ORDERING PHYSICIAN: Nancy Rubio APRN PATIENT AGE: 33 years COMPARISON: None FINDINGS: No fracture or dislocation is evident. No significant degenerative change. No lytic or blastic change. Unremarkable soft tissues IMPRESSION: Negative hip
--- NOTE | 2019-03-17 08:09 | XR_ITS ---
XR sacroiliac joint BI min 3V CLINICAL INDICATION: ITS.REASON: LOW BACK PAIN,HIP PAIN ORDERING PHYSICIAN: Nancy Rubio APRN PATIENT AGE: 33 years Comparison: None FINDINGS: Unremarkable. SI joints. No evidence of fusion, sclerosis, or significant degenerative change. IMPRESSION: Negative SI joints
== END ==
PROVIDERS: PCP Internal Medicine Adolescent Medicine; Visit Provider Clinical Nurse Specialist Family Health
DX: M54.5 Low back pain (principal); M25.551 Pain in right hip; M25.552 Pain in left hip
CPT/HCPCS: 72202; 73502

== ENCOUNTER → 2019-11-12 08:55 | Outpatient (CLI) | payer OTHER, SELFPAY ==
[2019-11-12 09:26] LABS: Basophils % 0.5 % (0.1-2.0); Eosinophils # 0.1 K/mm3 (0.0-0.4); Eosinophils % 1.3 % (0.1-12.0); Hematocrit 42.9 % (37.0-47.0); Hemoglobin 13.7 g/dL (12.2-16.2); Lymphocytes # 1.6 K/mm3 (0.7-4.5); Lymphocytes % 21.4 % (10-50); Mean Corpuscular Hemoglobin 28.6 pg (27.0-31.2); Mean Corpuscular Volume 89.2 fl (81-99); Mean Platelet Volume 8.6 fl (7.4-10.4); Monocytes # 0.3 K/mm3 (0.1-1.0); Monocytes % 4.2 % (1.7-9.3); Neutrophils # 5.3 K/mm3 (1.8-7.8); Neutrophils % 72.6 % (37.0-80.0); Platelet Count 301 K/mm3 (142-424); Red Blood Count 4.81 M/mm3 (4.20-5.40); Red Cell Distribution Width 13.6 % (11.5-17.5); White Blood Count 7.2 K/mm3 (4.8-10.8)
[2019-11-12 10:02] LABS: Alanine Aminotransferase 33 U/L (12-78); Albumin Level 4.2 gm/dL (3.4-5.0); Albumin/Globulin Ratio 1.4 (1.1-1.8); Alkaline Phosphatase 71 U/L (46-116); Anion Gap 13.1 mEq/L (5-15); Aspartate Amino Transferase 18 U/L (15-37); Bilirubin,Total 0.4 mg/dL (0.2-1.0); Blood Urea Nitrogen 22 mg/dL (7-18); Carbon Dioxide 27 mmol/L (21.0-32.0); Chloride 105 mmol/L (98-107); Chol/HDL Ratio 4.1 (1-3.5); Cholesterol 224 mg/dL (140-200); Creatinine,Serum 0.74 mg/dL (0.55-1.02); Estimated Glomerular Filt Rate 90 ml/min (>60); Free Thyroxine Index 2.5 ug/dL (5.93-13.13); GFR (African American) 109 ML/MIN (>60); Glucose 88 mg/dL (74-106); HDL Cholesterol 55 mg/dL (29-89); LDL Cholesterol 147 mg/dL (0-130); Potassium 4.1 mmoL/L (3.5-5.1); Sodium 141 mmol/L (136-145); Thyroid Stimulating Hormone 0.99 uIU/ml (0.358-3.740); Total Protein,Serum 7.2 gm/dL (6.4-8.2); Triglycerides 111 mg/dL (30-200); Triiodothryronine (T3) Uptake 35 % (31-39); VLDL Cholesterol 22 mg/dL (0-40)
[2019-11-13 17:02] LABS: Vitamin B12 803 pg/mL (232-1245); Vitamin D 25 Hydroxy 40.8 ng/mL (30.0-100.0)
== END ==
PROVIDERS: Visit Provider Internal Medicine Adolescent Medicine
DX: R00.2 Palpitations (principal); E03.9 Hypothyroidism, unspecified
CPT/HCPCS: 36415; 80053; 80061; 82533; 82607; 82652; 84436; 84443; 84479; 85025

== ENCOUNTER → 2019-12-09 14:18 | Outpatient (CLI) | payer OTHER, SELFPAY ==
[2019-12-09 14:22] LABS: Adenovirus F 40/41, stool Not Detected (NotDetected); Astrovirus Not Detected (NotDetected); Campylobacter Not Detected (NotDetected); Clostridium Difficile A/B, PCR Not Detected (NotDetected); Cryptosporidium Not Detected (NotDetected); Cyclospora Cayetanesis Not Detected (NotDetected); Entamoeba histolytica Not Detected (NotDetected); Enteroaggregative E coli Not Detected (NotDetected); Enteropathogenic E coli Not Detected (NotDetected); Enterotoxigenic E coli Not Detected (NotDetected); Giardia lamblia Not Detected (NotDetected); Norovirus Not Detected (NotDetected); Plesimonas Shigalloides, PCR Not Detected (NotDetected); Rotavirus A Not Detected (NotDetected); Salmonella, PCR Not Detected (NotDetected); Sapovirus Not Detected (NotDetected); Shiga-like toxin E coli Not Detected (NotDetected); Shigella Enterovasive E coli Not Detected (NotDetected); Vibrio Cholerae Not Detected (NotDetected); Vibrio, PCR Not Detected (NotDetected); Yersinia Entercolitica, PCR Not Detected (NotDetected)
== END ==
PROVIDERS: Visit Provider Internal Medicine Adolescent Medicine
DX: R19.7 Diarrhea, unspecified (principal)
CPT/HCPCS: 87507

== ENCOUNTER → 2020-01-15 14:21 | Outpatient (CLI) | payer OTHER, SELFPAY ==
[2020-01-17 11:03] LABS: DHEA-Sulfate 169.6 ug/dL (84.8-378.0); Testosterone,Total 16 ng/dL (8-48)
[2020-01-17 13:43] LABS: LH 0.9 mIU/mL (.)
[2020-01-21 07:19] LABS: Estrogen 145 pg/mL (.)
== END ==
PROVIDERS: Visit Provider Nurse Practitioner Family
DX: E65 Localized adiposity (principal); E78.1 Pure hyperglyceridemia; E88.81 Metabolic syndrome and other insulin resistance
CPT/HCPCS: 36415; 82626; 82672; 83001; 83002; 84403

== ENCOUNTER → 2020-01-21 08:25 | Outpatient (CLI) | payer OTHER, SELFPAY ==
--- NOTE | 2020-01-21 08:27 | US_ITS ---
PROCEDURE: US ABDOMEN LIMITED CLINICAL INDICATION: RUQ PAIN Right upper quadrant pain with nausea and diarrhea COMPARISON: No exams were available for comparison FINDINGS: PANCREAS: Unremarkable. No obvious mass or abnormal fluid collection. No ductal dilatation LIVER: No focal liver lesions demonstrated. Homogeneous echogenicity. No intrahepatic biliary ductal dilatation evident. There is appropriate direction of blood flow within a non dilated portal vein RIGHT KIDNEY: Unremarkable. Normal size and echogenicity. No hydronephrosis GALLBLADDER: No gallstones, gallbladder wall thickening, pericholecystic fluid, or biliary dilatation. IMPRESSION: Unremarkable limited abdominal ultrasound as detailed above disc Dictated by: Fabio Loera MD 01/21/2020 15:13 Electronically signed by Fabio Loera MD in [place] 01/21/2020 15:13
== END ==
PROVIDERS: PCP Internal Medicine Adolescent Medicine; Visit Provider Clinical Nurse Specialist Family Health
DX: R10.11 Right upper quadrant pain (principal)
CPT/HCPCS: 76705

== ENCOUNTER → 2020-01-27 08:23 | Outpatient (CLI) | payer OTHER, SELFPAY ==
--- NOTE | 2020-01-27 08:24 | NM_ITS ---
PROCEDURE: NM HEPATOBILIARY W PHARM CLINICAL INDICATION: right up Quad Right upper quadrant pain COMPARISON: US ABDOMEN LIMITED from 01/21/2020 TECHNIQUE: DOSE: 8.10 mCi technetium Choletec and 2.1 mcg of CCK. No pain reported with CCK infusion FINDINGS: Homogeneous activity is present within the hepatic parenchyma. Activity is present in the gallbladder by 10 minutes. Activity is present in the small bowel by 15 minutes. The gallbladder ejection fraction is calculated to be 18 percent. CCK-The patient did not report pain or other symptoms during CCK infusion. IMPRESSION: There is no evidence of common or cystic duct obstruction. Low gallbladder ejection fraction of 18 % Dictated by: Fabio Loera MD 01/27/2020 12:52 Electronically signed by Fabio Loera MD in [place] 01/27/2020 12:52
== END ==
PROVIDERS: PCP Internal Medicine Adolescent Medicine; Visit Provider Surgery
DX: K82.9 Disease of gallbladder, unspecified (principal)
CPT/HCPCS: 78227

== ENCOUNTER → 2020-02-14 09:01 | Outpatient (CLI) | payer OTHER, SELFPAY ==
[2020-02-14 13:58] LABS: Basophils % 0.4 % (0.1-2.0); Eosinophils # 0.2 K/mm3 (0.0-0.4); Eosinophils % 3.5 % (0.1-12.0); Hematocrit 40.2 % (37.0-47.0); Hemoglobin 12.8 g/dL (12.2-16.2); Lymphocytes % 28.6 % (10-50); Mean Corpuscular HGB Conc 31.7 g/dL (31.8-35.4); Mean Corpuscular Hemoglobin 28.4 pg (27.0-31.2); Mean Corpuscular Volume 89.5 fl (81-99); Mean Platelet Volume 9.9 fl (7.4-10.4); Monocytes # 0.3 K/mm3 (0.1-1.0); Monocytes % 4.4 % (1.7-9.3); Neutrophils # 4.3 K/mm3 (1.8-7.8); Neutrophils % 63.1 % (37.0-80.0); Platelet Count 274 K/mm3 (142-424); Red Blood Count 4.49 M/mm3 (4.20-5.40); Red Cell Distribution Width 13.4 % (11.5-17.5); White Blood Count 6.8 K/mm3 (4.8-10.8)
[2020-02-14 14:46] LABS: Chloride 108 mmol/L (98-107)
[2020-02-14 14:47] LABS: Potassium 4.4 mmoL/L (3.5-5.1); Sodium 137 mmol/L (136-145)
[2020-02-14 14:49] LABS: Alanine Aminotransferase 25 U/L (12-78); Alkaline Phosphatase 70 U/L (38-126); Anion Gap 10.4 mEq/L (5-15); Aspartate Amino Transferase 25 U/L (14-36); Bilirubin,Total 0.2 mg/dl (0.2-1.3); Blood Urea Nitrogen 17 mg/dl (7-17); Carbon Dioxide 23 mmol/L (22.0-30.0); Estimated Glomerular Filt Rate 96 ml/min (>60); GFR (African American) 117 ML/MIN (>60)
[2020-02-14 14:50] LABS: Albumin Level 4.2 g/dl (3.5-5.0); Albumin/Globulin Ratio 1.6 (1.1-1.8); Calcium 9.1 mg/dl (8.4-10.2); Globulin 2.7 g/dL (1.3-3.2); Glucose 93 mg/dl (74-100); Total Protein,Serum 6.9 g/dl (6.3-8.2)
[2020-02-15 16:29] LABS: Covid-19 Nasal PCR Sendout UK Not Detected
== END ==
PROVIDERS: PCP Internal Medicine Adolescent Medicine; Visit Provider Surgery
DX: Z03.818 Encounter for observation for suspected exposure to other biological agents ruled out (principal); K82.9 Disease of gallbladder, unspecified
CPT/HCPCS: 36415; 80053; 85025; U0003

== ENCOUNTER 2020-02-16 08:11 | Day surgery (SDC) | payer OTHER, SELFPAY ==
--- NOTE | 2020-02-11 10:46 | SUR.PREOP ---
02/11/2020--PHONE CALL MADE TO PATIENT. PATIENT UNDERSTANDS THAT LAB WORK AND COVID TESTING NEEDS TO BE COMPLETED @ 0900 ON 02/14/2020. PATIENT UNDERSTANDS IF LAB WORK AND COVID-19 TESTS ARE NOT COMPLETED BY 12PM ON THAT DATE, THE SURGERY SCHEDULED WILL BE CANCELLED AND RESCHEDULED FOR ANOTHER TIME.
[2020-02-15 12:23] VITALS: BMI 35.6
[2020-02-16] VITALS (11 sets, daily range): BP systolic 103–144; BP diastolic 66–86; PULSE 52–84; RESP 12–18; TEMP 36.3–36.4; O2SAT 99–100
[2020-02-16 08:30] LABS: Urine Pregnancy, HCG Qual. Negative (Negative)
--- NOTE | 2020-02-16 08:55 | P.PN_ITS ---
[facility] Anesthesia Checklist - Patient Identification Patient Identification: Arm Band - Structural Data Admitted From: Home Planned Operative Procedure/s: laparoscopic cholecystectomy Consent for Planned Operative Procedure(s) Verified: Yes Verified Documents: Surgical Consent, History and Physical - NPO Status Verified Time NPO: 00:00 - Additional verifications Anesthesia Reactions: No Hx Blood Transfusions: No Blood Transfusion Reaction: No - Airway Assessment C-Spine Mobility Assessed: Yes (mp2) TMJ Mobility Assessed: Yes Dentition: Good Dentition - Neurological Assessment Level of Consciousness: Awake, Alert - Anesthesia Plan Anesthesia Risk discussed: Yes Anesthesia Plan: Verified ASA Class: II Anesthesia Type: General [facility] History I have reviewed the patient's past medical history: Yes Medical History: Reports:: Arrhythmia, Hyperlipidemia, Hypertension, Palpitations, Renal Disease, Seizures (childhood) Denies:: Cancer, Diabetes Mellitus Type 1, Diabetes Mellitus Type 2, Internal Pacemaker, Lung Disease, MRSA *Have you ever received a pneumonia vaccine?: No *Have you received a flu vaccine this season?: Yes Other Medical History: Reports: Hypothyroidism. Denies: Blood Transfusion Reaction Anesthesia experience/problems:: ponv Laterality Cases: Right: Other, Bilateral: Tonsillectomy Other Surgeries: Yes: Tubal Ligation, Other. 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
--- NOTE | 2020-02-16 11:36 | HMH.OPNOTE ---
Date of procedure: 02/16/20 Pre-op Diagnosis:: Gallbladder disease Post-op Diagnosis:: Same Procedure performed:: Laparoscopic cholecystectomy Surgeon:: Lg Walker MD TOWBOAT CAPTAIN:: Renato Morin Anesthesia: GETA Estimated blood loss (mL): 10 Clinical Note:: Patient presents for cholecystectomy. I had seen her in the office for possible gallbladder issues. She states that for about 6 weeks she has had some symptoms initially characterized by postprandial diarrhea. This usually occurs approximately 30 minutes postprandially. She saw her primary care provider, Dr. Beard, and some of her medications were changed. About 2 or 3 weeks ago she began developing symptoms described as right upper quadrant spasms. She was started on Bentyl which did improve the spasm type symptoms but she does have some dizziness. She states that she did undergo stool diarrhea PCR panel which was negative. She was concerned because her father had colon cancer diagnosed at age 50. She localizes her symptoms essentially in the right thoracoabdominal area. There is occasionally some radiation to her right shoulder. She underwent gallbladder ultrasound which was negative for gallstones. I had her undergo HIDA scan. This revealed an ejection fraction of 18%. Later she had exact reproduction of her symptoms which persisted the following day. She also had eaten some [place] food the following day and had recurrent symptoms. The options were discussed with the patient. She wished to pursue cholecystectomy. Operative findings:: She had a distended gallbladder with some omental adhesions. Operative note:: Patient was taken to the operating room. She was given preoperative intravenous antibiotics. In the operating room she was placed in a supine position. General anesthesia was induced via endotracheal tube. Abdomen was prepped and draped in the standard surgical fashion. Subumbilical skin incision was made. Dissection was carried down to the fascia and while performing abdominal wall lift Veress needle was inserted. CO2 pneumoperitoneum was achieved to 15 mmHg. 11 mm optical trocar was inserted at the umbilicus. She was positioned in reverse Trendelenburg left side down. A couple of 5 mm trochars were inserted in the right upper abdomen. 10 mm trocar was inserted in the epigastrium. Gallbladder was grasped retracted anteriorly and superiorly over the dome of the liver. There were some minimal omental adhesions to the gallbladder which were taken down using blunt dissection. Infundibulum/Bustos's pouch of the gallbladder was retracted anterior laterally. Blunt dissection was carried out the neck of the gallbladder bluntly incising the visceral peritoneum. Cystic duct and cystic artery were clearly identified. Cystic duct was isolated and multiply clipped and then divided. Cystic artery was carefully coagulated with MARINO ultrasonic robotic loraine and divided. The gallbladder was dissected free from the liver in a retrograde fashion using MARINO ultrasonic harmonic loraine. Gallbladder was placed within an Endo Catch retrieval device and removed from the peritoneal cavity via the umbilical trocar site. Very limited irrigation was carried out the gallbladder fossa and perihepatic space. There appeared to be good hemostasis. Trochars were then removed as CO2 pneumoperitoneum was evacuated. Fascia at the umbilicus was closed with a couple of 0 Vicryl sutures. Local anesthetic was infiltrated into all incision sites. Skin incisions were closed with 4-0 Monocryl in a subcuticular fashion. Steri-Strips and dressings were applied. Condition: stable Disposition: PACU Specimens:: Gallbladder and contents Complications:: None immediately apparent
--- NOTE | 2020-02-16 11:49 | HMH.ANESI ---
[facility] Anesthesia Record Part I Intake, IV Amount: 1,400 Estimated blood loss (mL): 0 Urine output (mL): 0 Blood Pressure: 127/68 SaO2: 99 Pulse Rate: 60 Respiratory Rate: 12 Temperature: 97.5 F Patient is:: Awake, Stable Stable to PACU at:: 11:45
--- NOTE | 2020-02-16 13:11 | P.PN_ITS ---
[facility] Anesthesia Record Part II Discharge Time: 12:15 Destination: Surgical Day Care (OP Surgery) PACU nurse assessment reviewed?: Yes Patient Condition:: Good Anesthesia Complications:: None Swallowing reflex intact?: Yes Cyanosis?: No Blood Pressure: 103/66 Pulse Rate: 52 Temperature: 97.4 F Mental Status: Alert & Oriented Pain level:: 2 Nausea and/or vomitting:: None Intake, IV Amount: 25
== END 2020-02-16 13:08 | disposition home or self-care (01) ==
LOC: OR 08:12
PROVIDERS: PCP Internal Medicine Adolescent Medicine; Visit Provider Surgery
PROC: 0FT44ZZ Resection of Gallbladder, Percutaneous Endoscopic Approach (ICD-10-PCS; CPT 47562; principal; 2020-02-16 09:30)
DX: K82.9 Disease of gallbladder, unspecified (principal)
CPT/HCPCS: 47562; 81025; 96374; J0330; J2405; J2710

== ENCOUNTER → 2021-02-13 09:12 | Outpatient (CLI) | payer OTHER, SELFPAY ==
[2021-02-13 10:28] LABS: Triiodothryronine (T3) Uptake 30 % (23.5-40.5)
[2021-02-13 10:29] LABS: Free Thyroxine Index 2.3 ug/dL (5.93-13.13); T4 (Thyroxine) 7.6 ug/dl (5.53-11.0)
[2021-02-13 10:30] LABS: 25-OH Vitamin D, Total 53.2 ng/mL (30-100)
[2021-02-13 10:44] LABS: Thyroid Stimulating Hormone 0.04 uIU/mL (0.465-4.68)
== END ==
PROVIDERS: Visit Provider Nurse Practitioner Family
DX: L65.9 Nonscarring hair loss, unspecified (principal); R63.5 Abnormal weight gain; Z68.36 Body mass index [BMI] 36.0-36.9, adult
CPT/HCPCS: 36415; 82306; 84436; 84443; 84479

== ENCOUNTER → 2021-05-16 18:28 | Outpatient (CLI) | payer OTHER, SELFPAY ==
[2021-05-16 18:57] LABS: Basophils # 0.1 K/mm3 (0-0.2); Basophils % 0.7 % (0.1-2.0); Eosinophils # 0.4 K/mm3 (0.0-0.4); Hematocrit 40.7 % (37.0-47.0); Hemoglobin 13.5 g/dL (12.2-16.2); Lymphocytes % 37.5 % (10-50); Mean Corpuscular HGB Conc 33.3 g/dL (31.8-35.4); Mean Corpuscular Hemoglobin 28.5 pg (27.0-31.2); Mean Corpuscular Volume 85.6 fl (81-99); Mean Platelet Volume 8.3 fl (7.4-10.4); Monocytes # 0.5 K/mm3 (0.1-1.0); Monocytes % 4.3 % (1.7-9.3); Neutrophils # 5.7 K/mm3 (1.8-7.8); Neutrophils % 53.6 % (37.0-80.0); Platelet Count 286 K/mm3 (142-424); Red Blood Count 4.75 M/mm3 (4.20-5.40); Red Cell Distribution Width 13.7 % (11.5-17.5); White Blood Count 10.7 K/mm3 (4.8-10.8)
[2021-05-16 21:01] LABS: Alanine Aminotransferase 31 U/L (12-78); Albumin Level 4.3 g/dl (3.5-5.0); Albumin/Globulin Ratio 1.5 (1.1-1.8); Alkaline Phosphatase 112 U/L (38-126); Anion Gap 18.5 mEq/L (5-15); Aspartate Amino Transferase 30 U/L (14-36); Bilirubin,Total 0.5 mg/dl (0.2-1.3); Blood Urea Nitrogen 15 mg/dl (7-17); Calcium 8.9 mg/dl (8.4-10.2); Carbon Dioxide 21 mmol/L (22.0-30.0); Chloride 105 mmol/L (98-107); Chol/HDL Ratio 4.7 (1-3.5); Cholesterol 250 mg/dl (140-200); Estimated Glomerular Filt Rate 82 ml/min (>60); GFR (African American) 99 ML/MIN (>60); Globulin 2.8 g/dL (1.3-3.2); Glucose 88 mg/dl (74-100); HDL Cholesterol 53 mg/dl (40-60); Potassium 4.5 mmoL/L (3.5-5.1); Sodium 140 mmol/L (136-145); Total Protein,Serum 7.1 g/dl (6.3-8.2); Triglycerides 210 mg/dl (30-150); VLDL Cholesterol 42 mg/dL (0-40)
[2021-05-16 21:12] LABS: Direct LDL Cholesterol 155.06 mg/dL (100-129)
[2021-05-16 21:18] LABS: Free T4 (Free Thyroxine) 0.94 ng/dl (0.78-2.19)
[2021-05-16 21:32] LABS: Thyroid Stimulating Hormone 3.18 uIU/mL (0.465-4.68)
[2021-05-17 03:27] LABS: Hemoglobin A1C 5.4 % (4.0-6.0)
== END ==
PROVIDERS: Visit Provider Nurse Practitioner Family
DX: Z00.00 Encounter for general adult medical examination without abnormal findings (principal); E03.9 Hypothyroidism, unspecified; E78.2 Mixed hyperlipidemia; Z79.899 Other long term (current) drug therapy
CPT/HCPCS: 36415; 80053; 80061; 83036; 84439; 84443; 85025

== ENCOUNTER 2021-07-03 17:39 | Emergency (ER) | payer OTHER, SELFPAY ==
[2021-07-03 17:40] VITALS: BP 132/76; PULSE 81; RESP 18; TEMP 36.6; O2SAT 98; BMI 40.3
--- NOTE | 2021-07-03 17:45 | XR_ITS ---
PROCEDURE INFORMATION: Exam: XR Right Ankle Exam date and time: 07/03/2021 5:45 PM Age: 35 years old Clinical indication: Injury or trauma; Swelling (edema); Ankle; Right; Prior surgery; Patient HX: Fall on walking trail , previous SX TECHNIQUE: Imaging protocol: XR Right ankle. Views: 3 or more views. Total images: 4 COMPARISON: CR XR FOOT RT MIN 3V 07/03/2021 5:44 PM FINDINGS: Tubes, catheters and devices: Two cannulated screws fixate the medial malleolus. One of these is about 4.5 mm proud from the posterior metaphyseal margin and might contribute to impingement on FHL. Bones/joints: There is oblique lucency in the lateral malleolus/distal fibular metadiaphysis on the lateral view and oblique view, with associated local bony sclerosis and medial cortical thickening. Cannot exclude a nondisplaced fracture in the lateral malleolus although this may simply represent chronic changes of prior fracture. CT may be helpful in further clarification. No blastic or lytic lesions. The ankle mortise joint is well maintained. No gross ankle joint effusion. The visualized hindfoot and midfoot are grossly well aligned. No hindfoot coalition. Small plantar calcaneal spur. Soft tissues: Soft tissue swelling in the lateral and anterior ankle. No radiopaque foreign bodies. Other findings: No osteolysis. IMPRESSION: 1. Questionable oblique lucency in the lateral malleolus with moderate intermixed bony sclerosis. This could represent nondisplaced acute fracture superimposed on chronic changes of remote prior fracture, or might simply represent chronic changes of prior fracture. CT would allow more specific differentiation of these possibilities. 2. Two cannulated screws fixate the medial malleolus with 1 of them about 4.5 mm proud from the posterior metaphyseal cortex, which might contribute to impingement on FHL, correlate for posterior ankle impingement symptoms with toe flexion. 3. Soft tissue swelling laterally and anteriorly. 4. Small plantar calcaneal spur.
--- NOTE | 2021-07-03 17:45 | XR_ITS ---
PROCEDURE INFORMATION: Exam: XR Right Foot Exam date and time: 07/03/2021 5:45 PM Age: 35 years old Clinical indication: Injury or trauma; Swelling (edema); Foot; Right; Prior surgery; Patient HX: Fall on walking trail TECHNIQUE: Imaging protocol: XR Right foot. Views: 3 or more views. Total images: 3 COMPARISON: No relevant prior studies available. FINDINGS: Tubes, catheters and devices: There are 2 cannulated screws fixating the medial malleolus. One of the screws is about 4.5 mm proud from the posterior cortical margin of the distal tibia. This could potentially contribute to impingement on flexor hallucis longus, correlate clinically for any posterior ankle impingement symptoms with toe flexion. Bones/joints: Normal variant cornuate navicular configuration. Small plantar calcaneal spur. No fractures. Normal alignment is maintained in the midfoot, hindfoot, and forefoot. Joint spaces are well-maintained. No blastic or lytic lesions. No gross ankle joint effusion. No hindfoot coalition. Soft tissues: No periostitis or osteolysis. No gross soft tissue abnormalities. No radiopaque foreign bodies. Other findings: Normal mineralization. IMPRESSION: 1. No acute injuries are evident. 2. There are 2 cannulated screws fixating the medial malleolus, with 1 of them extending about 4.5 mm proud from the posterior cortical margin of the tibial metaphysis, which could potentially contribute to posterior ankle impingement on FHL, correlate clinically. 3. Small plantar calcaneal spur.
--- NOTE | 2021-07-03 18:27 | HMH.EDGENADL ---
ED Disposition Clinical Impression: Closed right ankle fracture Qualifiers: Encounter type: initial encounter Qualified Code(s): S82.891A - Other fracture of right lower leg, initial encounter for closed fracture Disposition: Home, Self-Care Condition on Discharge: Good Instructions: DI for Ankle Fracture Prescriptions: Hydrocod/Acet 5/325 mg [[place] 5/325mg tablet] 1 tab PO Q6HP PRN #7 tab PRN Reason: Moderate Pain Transmission Status: Sent to [facility] Referrals: Renato Beard MD [Primary Care Provider] - - Critical Care Critical Care Time: No Attestation: On 07/03/21, the high probability of a clinically significant, sudden or life threatening deterioration of the following system(s) required my full and direct attention, intervention and personal management. The time I documented below is in addition to time spent performing reported procedures but includes the following listed in this critical care notation. Medical Decision Making - Medical Records Medical records reviewed: Yes: I reviewed the patient's medical records. - Darrin Inquiry Pt receiving controlled substance: No Vital Signs: 07/03/21 17:40 Temperature 98 F Temperature Source Oral Pulse Rate [Radial] 81 Respiratory Rate 18 Blood Pressure [Right Arm] 132/76 Blood Pressure Mean [Right Arm] 94 Blood Pressure Position [Right Arm] Sitting 02 Sat by Pulse Oximetry 98 Oxygen Delivery Method Room Air - Radiology Data #1 Image(s): Ankle, Foot/Toes Image Reviewed: Yes I reviewed the patient's radiology results, Yes I reviewed the patient's radiology image, Yes I have reviewed radiologist's interpretation IMPRESSION: 1. No acute injuries are evident. 2. There are 2 cannulated screws fixating the medial malleolus, with 1 of them extending about 4.5 mm proud from the posterior cortical margin of the tibial metaphysis, which could potentially contribute to posterior ankle impingement on FHL, correlate clinically. 3. Small plantar calcaneal spur. IMPRESSION: 1. Questionable oblique lucency in the lateral malleolus with moderate intermixed bony sclerosis. This could represent nondisplaced acute fracture superimposed on chronic changes of remote prior fracture, or might simply represent chronic changes of prior fracture. CT would allow more specific differentiation of these possibilities. 2. Two cannulated screws fixate the medial malleolus with 1 of them about 4.5 mm proud from the posterior metaphyseal cortex, which might contribute to impingement on FHL, correlate for posterior ankle impingement symptoms with toe flexion. 3. Soft tissue swelling laterally and anteriorly. 4. Small plantar calcaneal spur. - Reevaluation(s) Time: 18:43 Reevaluation #1: On reevaluation, patient's pain is improved. She does have evidence of a small lucency in the lateral malleolus. Is concerning for a possible hairline fracture. We will place the patient in immobilizer. She will follow up with orthopedic surgery. Given strict return precautions. Verbalized understanding. Medical Decision Narrative: 35-year-old female presenting with some right ankle pain. Concern for sprain versus fracture. Work-up initiated. General Adult HPI - General Chief complaint: PAIN Stated complaint: AO 0927 fell injured R Ankle Time Seen by Provider: 07/03/21 17:45 Mode of Arrival: Ambulatory Limitations: No Limitations Description of Symptoms (Recalled from ER Triage Doc. by RN): TO ED PER PVT CAR WITH C/O RT ANKLE AND FOOT PAIN. STATES WALKING AND STEPPED IN A HOLE TWISTED ANKLE. PT STATES SHE ATTEMPTED TO WALK BUT ALMOST PASSED OUT . - History of Present Illness HPI narrative: 35-year-old female presented to the emergency department with some right ankle pain. Patient states that she was walking her dog when she stepped in a hole. She rolled her ankle and heard a pop. She is having some significant pain al
[2021-07-03 19:12] VITALS: BP 132/74; PULSE 74; RESP 16; TEMP 36.6; O2SAT 98
--- NOTE | 2021-07-03 19:12 | PC.NURSE ---
ORTHO BOOT APPLIED RT FOOT
== END 2021-07-03 19:14 | disposition home or self-care (01) ==
PROVIDERS: Emergency Provider Emergency Medicine; PCP Internal Medicine Adolescent Medicine
DX: S82.891A Other fracture of right lower leg, initial encounter for closed fracture (principal); W17.2XXA Fall into hole, initial encounter; Y92.89 Other specified places as the place of occurrence of the external cause; I10 Essential (primary) hypertension; E78.5 Hyperlipidemia, unspecified; E03.9 Hypothyroidism, unspecified
CPT/HCPCS: 73610; 73630; 99282

== ENCOUNTER → 2022-02-27 23:38 | Outpatient (CLI) | payer OTHER, SELFPAY ==
[2022-03-01 09:53] LABS: Rubella Antibodies, IgG 2.12 index (Immune >0.99)
[2022-03-01 14:32] LABS: Varicella-Zoster Ab, IgM <0.91 index (0.00-0.90)
[2022-03-01 16:30] LABS: Measles Antibodies, IgG 61.3 AU/mL (Immune >16.4); Varicella Zoster IgG 341 index (Immune >165)
== END ==
PROVIDERS: Visit Provider Internal Medicine Adolescent Medicine
DX: Z01.84 Encounter for antibody response examination (principal)
CPT/HCPCS: 86735; 86762; 86765; 86787

== ENCOUNTER → 2022-03-16 23:30 | Outpatient (CLI) | payer OTHER, SELFPAY ==
[2022-03-22 08:13] LABS: Hep B Surface Ab, Qual Non Reactive (.)
== END ==
PROVIDERS: PCP Internal Medicine Adolescent Medicine; Visit Provider Internal Medicine Adolescent Medicine
DX: Z01.84 Encounter for antibody response examination (principal)
CPT/HCPCS: 86704; 86706

== ENCOUNTER → 2022-03-27 14:48 | Outpatient (CLI) | payer OTHER, SELFPAY ==
--- NOTE | 2022-03-27 14:49 | MM_ITS ---
PROCEDURE INFORMATION: Exam: MG Bilateral Screening 3D Mammography Exam date and time: 03/27/2022 2:48 PM Age: 36 years old Clinical indication: Screening examination TECHNIQUE: Imaging protocol: Bilateral Screening tomosynthesis and 2D mammography including computer-aided detection (CAD) when performed. COMPARISON: No relevant prior studies available. Baseline FINDINGS: MAMMOGRAPHY: Breast composition: There are scattered areas of fibroglandular density. Mass: None. Architectural distortion: None. Calcifications: No suspicious calcifications. Asymmetric density: None. Skin thickening: None. Axillary adenopathy: None. IMPRESSION: No mammographic evidence of malignancy. Annual screening is recommended unless otherwise clinically indicated. ASSESSMENT: BI-RADS Category 1: Negative
--- NOTE | 2022-03-27 14:49 | US_ITS ---
FINAL REPORT CLINICAL HISTORY: Heavy Bleeding FINDINGS: Transvaginal sonographic images of the pelvis were obtained. The uterus measures 7.1 x 4.8 x 3.6 cm. The endometrium is suboptimally visualized and measures approximately 5 mm. The myometrium is heterogeneous and could represent adenomyosis. No well-defined mass is identified. The right ovary measures 2.7 cm in length and left ovary measures 2.9 cm in length. Normal blood flow seen to the ovaries. There is no evidence of free fluid. IMPRESSION: Heterogeneous myometrium could represent adenomyosis. No well-defined mass identified. Reviewed, Interpreted and Dictated by Lg Calix III, MD Transcribed by Yazmin Devries Authenticated and [facility]
== END ==
PROVIDERS: PCP Internal Medicine Adolescent Medicine; Visit Provider Nurse Practitioner Obstetrics & Gynecology
DX: Z12.31 Encounter for screening mammogram for malignant neoplasm of breast (principal); Z80.3 Family history of malignant neoplasm of breast; N92.0 Excessive and frequent menstruation with regular cycle
CPT/HCPCS: 76830; 77063; 77067

== ENCOUNTER → 2022-07-23 08:31 | Outpatient (CLI) | payer OTHER, SELFPAY ==
[2022-07-23 09:29] LABS: Basophils # 0.1 K/mm3 (0-0.2); Basophils % 0.7 % (0.1-2.0); Eosinophils # 0.3 K/mm3 (0.0-0.4); Eosinophils % 4.2 % (0.1-12.0); Hematocrit 42.5 % (37.0-47.0); Hemoglobin 13.4 g/dL (12.2-16.2); Lymphocytes # 2.5 K/mm3 (0.7-4.5); Mean Corpuscular HGB Conc 31.6 g/dL (31.8-35.4); Mean Corpuscular Hemoglobin 28.5 pg (27.0-31.2); Mean Platelet Volume 8.4 fl (7.4-10.4); Monocytes # 0.4 K/mm3 (0.1-1.0); Neutrophils # 4.8 K/mm3 (1.8-7.8); Neutrophils % 59.1 % (37.0-80.0); Platelet Count 282 K/mm3 (142-424); Red Blood Count 4.72 M/mm3 (4.20-5.40); Red Cell Distribution Width 13.9 % (11.5-17.5); White Blood Count 8.1 K/mm3 (4.8-10.8)
[2022-07-23 09:44] LABS: Hemoglobin A1C 5.5 % (4.0-6.0)
[2022-07-23 09:49] LABS: Alanine Aminotransferase 35 U/L (12-78); Albumin Level 3.9 g/dl (3.5-5.0); Albumin/Globulin Ratio 1.4 (1.1-1.8); Alkaline Phosphatase 132 U/L (38-126); Anion Gap 14.8 mEq/L (5-15); Aspartate Amino Transferase 32 U/L (14-36); Bilirubin,Total 0.3 mg/dl (0.2-1.3); Blood Urea Nitrogen 21 mg/dl (7-17); Calcium 8.8 mg/dl (8.4-10.2); Carbon Dioxide 27 mmol/L (22.0-30.0); Chloride 103 mmol/L (98-107); Chol/HDL Ratio 4.9 (1-3.5); Cholesterol 259 mg/dl (140-200); Estimated Glomerular Filt Rate 95 ml/min (>60); GFR (African American) 115 ML/MIN (>60); Globulin 2.7 g/dL (1.3-3.2); Glucose 98 mg/dl (74-100); HDL Cholesterol 53 mg/dl (40-60); Potassium 4.8 mmoL/L (3.5-5.1); Sodium 140 mmol/L (136-145); Total Protein,Serum 6.6 g/dl (6.3-8.2); Triglycerides 184 mg/dl (30-150); VLDL Cholesterol 37 mg/dL (0-40)
[2022-07-23 10:00] LABS: Direct LDL Cholesterol 153.59 mg/dL (100-129)
[2022-07-23 10:04] LABS: 25-OH Vitamin D, Total 32.6 ng/mL (30-100)
[2022-07-23 10:19] LABS: Thyroid Stimulating Hormone 1.71 uIU/mL (0.465-4.68)
[2022-07-23 10:38] LABS: Vitamin B12 755 pg/mL (239-931)
== END ==
PROVIDERS: PCP Nurse Practitioner Family; Visit Provider Nurse Practitioner Family
DX: Z00.00 Encounter for general adult medical examination without abnormal findings (principal); E03.9 Hypothyroidism, unspecified; E78.2 Mixed hyperlipidemia
CPT/HCPCS: 36415; 80053; 80061; 82306; 82607; 83036; 84443; 85025

== ENCOUNTER → 2023-02-04 08:32 | Outpatient (CLI) | payer OTHER, SELFPAY ==
[2023-02-04 09:13] LABS: Basophils % 0.5 % (0.1-2.0); Eosinophils # 0.2 K/mm3 (0.0-0.4); Eosinophils % 2.7 % (0.1-12.0); Hematocrit 41.3 % (37.0-47.0); Hemoglobin 13.3 g/dL (12.2-16.2); Lymphocytes # 2.6 K/mm3 (0.7-4.5); Lymphocytes % 38.7 % (10-50); Mean Corpuscular HGB Conc 32.3 g/dL (31.8-35.4); Mean Corpuscular Volume 83.6 fl (81-99); Mean Platelet Volume 8.5 fl (7.4-10.4); Monocytes # 0.4 K/mm3 (0.1-1.0); Neutrophils # 3.5 K/mm3 (1.8-7.8); Platelet Count 288 K/mm3 (142-424); Red Blood Count 4.93 M/mm3 (4.20-5.40); Red Cell Distribution Width 14.4 % (11.5-17.5); White Blood Count 6.7 K/mm3 (4.8-10.8)
[2023-02-04 09:24] LABS: Chloride 107 mmol/L (98-107)
[2023-02-04 09:27] LABS: Alanine Aminotransferase 28 U/L (12-78); Albumin Level 3.9 g/dl (3.5-5.0); Albumin/Globulin Ratio 1.4 (1.1-1.8); Alkaline Phosphatase 113 U/L (38-126); Aspartate Amino Transferase 27 U/L (14-36); Bilirubin,Total 0.3 mg/dl (0.2-1.3); Blood Urea Nitrogen 18 mg/dl (7-17); Calcium 8.8 mg/dl (8.4-10.2); Carbon Dioxide 26 mmol/L (22.0-30.0); Cholesterol 219 mg/dl (140-200); Estimated Glomerular Filt Rate 81 ml/min (>60); GFR (African American) 98 ML/MIN (>60); Globulin 2.7 g/dL (1.3-3.2); Glucose 97 mg/dl (74-100); Total Protein,Serum 6.6 g/dl (6.3-8.2); Triglycerides 232 mg/dl (30-150); VLDL Cholesterol 46 mg/dL (0-40)
[2023-02-04 09:28] LABS: Chol/HDL Ratio 5.1 (1-3.5); HDL Cholesterol 43 mg/dl (40-60)
[2023-02-04 09:39] LABS: Direct LDL Cholesterol 129.47 mg/dL (100-129)
[2023-02-04 09:52] LABS: Free T4 (Free Thyroxine) 0.89 ng/dl (0.78-2.19)
[2023-02-04 10:12] LABS: Thyroid Stimulating Hormone 1.47 uIU/mL (0.465-4.68)
[2023-02-04 10:21] LABS: Hemoglobin A1C 5.6 % (4.0-6.0)
[2023-02-04 11:30] LABS: Sodium 140 mmol/L (136-145)
[2023-02-08 12:37] LABS: F001-IgE Egg White <0.10 kU/L (Class 0); F002-IgE Milk <0.10 kU/L (Class 0); F003-IgE Codfish <0.10 kU/L (Class 0); F004-IgE Wheat <0.10 kU/L (Class 0); F010-IgE Sesame Seed <0.10 kU/L (Class 0); F013-IgE Peanut <0.10 kU/L (Class 0); F014-IgE Soybean <0.10 kU/L (Class 0); F024-IgE Shrimp <0.10 kU/L (Class 0); F256-IgE Walnut <0.10 kU/L (Class 0); F338-IgE Scallop <0.10 kU/L (Class 0)
== END ==
PROVIDERS: PCP Internal Medicine Adolescent Medicine; Visit Provider Nurse Practitioner Family
DX: R10.9 Unspecified abdominal pain (principal); E03.9 Hypothyroidism, unspecified; E78.2 Mixed hyperlipidemia; E88.81 Metabolic syndrome and other insulin resistance
CPT/HCPCS: 36415; 80053; 80061; 83036; 84439; 84443; 85025; 86003; 86008

== ENCOUNTER → 2023-03-11 07:33 | Outpatient (CLI) | payer OTHER, SELFPAY ==
--- NOTE | 2023-03-11 07:33 | CT_ITS ---
FINAL REPORT TECHNIQUE: Axial CT images were obtained through the pelvis without contrast. Reconstruction images were obtained from the axial data. Exam was performed using dose reduction technique. CLINICAL HISTORY: lipoma at base of spine, lipoma on buttocks COMPARISON: 01/30/2018 FINDINGS: CT examination of the pelvis without contrast: The uterus and ovaries are normal for age. The appendix is normal in appearance. No acute abnormal colon or small bowel abnormality is identified. A small amount of physiologic free fluid is present. There is a small fat containing umbilical hernia noted. There is no encapsulated lipoma within the field of exam seen. No acute osseous abnormalities are identified. IMPRESSION: No fat containing mass is identified in the soft tissues. No acute abnormality of the pelvis . Reviewed, Interpreted and Dictated by Paulette Rosario MD Transcribed by Doris English Authenticated and . [facility]
== END ==
PROVIDERS: PCP Internal Medicine Adolescent Medicine; Visit Provider Surgery
DX: D17.1 Benign lipomatous neoplasm of skin and subcutaneous tissue of trunk (principal)
CPT/HCPCS: 72192

== ENCOUNTER → 2023-07-30 07:46 | Outpatient (CLI) | payer OTHER, SELFPAY ==
[2023-07-30 07:51] LABS: Adenovirus F 40/41, stool Not Detected (NotDetected); Astrovirus Not Detected (NotDetected); Campylobacter Not Detected (NotDetected); Clostridium Difficile A/B, PCR Not Detected (NotDetected); Cryptosporidium Not Detected (NotDetected); Cyclospora Cayetanesis Not Detected (NotDetected); Entamoeba histolytica Not Detected (NotDetected); Enteroaggregative E coli Not Detected (NotDetected); Enteropathogenic E coli Not Detected (NotDetected); Enterotoxigenic E coli Not Detected (NotDetected); Giardia lamblia Not Detected (NotDetected); Norovirus Not Detected (NotDetected); Plesimonas Shigalloides, PCR Not Detected (NotDetected); Rotavirus A Not Detected (NotDetected); Salmonella, PCR Not Detected (NotDetected); Sapovirus Not Detected (NotDetected); Shiga-like toxin E coli Not Detected (NotDetected); Vibrio Cholerae Not Detected (NotDetected); Vibrio, PCR Not Detected (NotDetected); Yersinia Entercolitica, PCR Not Detected (NotDetected)
[2023-07-30 08:09] LABS: Chloride 106 mmol/L (98-107); Potassium 4.4 mmoL/L (3.5-5.1); Sodium 139 mmol/L (136-145)
[2023-07-30 08:11] LABS: Alanine Aminotransferase 42 U/L (12-78); Aspartate Amino Transferase 33 U/L (14-36); Blood Urea Nitrogen 15 mg/dl (7-17); Estimated Glomerular Filt Rate 71 ml/min (>60); GFR (African American) 86 ML/MIN (>60)
[2023-07-30 08:12] LABS: Albumin Level 4.4 g/dl (3.5-5.0); Albumin/Globulin Ratio 1.4 (1.1-1.8); Alkaline Phosphatase 111 U/L (38-126); Anion Gap 12.4 mEq/L (5-15); Bilirubin,Total 0.4 mg/dl (0.2-1.3); Calcium 8.8 mg/dl (8.4-10.2); Carbon Dioxide 25 mmol/L (22.0-30.0); Globulin 3.2 g/dL (1.3-3.2); Glucose 103 mg/dl (74-100); Total Protein,Serum 7.6 g/dl (6.3-8.2)
[2023-07-30 08:18] LABS: Basophils % 0.4 % (0.1-2.0); Eosinophils # 0.3 K/mm3 (0.0-0.4); Eosinophils % 3.5 % (0.1-12.0); Hematocrit 37.4 % (37.0-47.0); Hemoglobin 13.1 g/dL (12.2-16.2); Lymphocytes # 2.2 K/mm3 (0.7-4.5); Lymphocytes % 29.9 % (10-50); Mean Corpuscular HGB Conc 35.2 g/dL (31.8-35.4); Mean Corpuscular Hemoglobin 29.3 pg (27.0-31.2); Mean Corpuscular Volume 83.4 fl (81-99); Mean Platelet Volume 8.1 fl (7.4-10.4); Monocytes # 0.4 K/mm3 (0.1-1.0); Monocytes % 4.9 % (1.7-9.3); Neutrophils # 4.5 K/mm3 (1.8-7.8); Neutrophils % 61.3 % (37.0-80.0); Platelet Count 248 K/mm3 (142-424); Red Blood Count 4.48 M/mm3 (4.20-5.40); Red Cell Distribution Width 14.2 % (11.5-17.5); White Blood Count 7.3 K/mm3 (4.8-10.8)
[2023-07-30 10:08] LABS: Occult Blood,Stool Negative (Negative)
[2023-07-31 15:03] LABS: C difficile Toxins AB, EIA Negative (Negative)
[2023-08-02 14:44] LABS: Shigella Enterovasive E coli Not Detected (NotDetected)
== END ==
PROVIDERS: PCP Internal Medicine Adolescent Medicine; Visit Provider Internal Medicine Adolescent Medicine
DX: A09 Infectious gastroenteritis and colitis, unspecified (principal); Z79.899 Other long term (current) drug therapy
CPT/HCPCS: 36415; 80053; 82272; 85025; 87324; 87507; G0328

== ENCOUNTER 2025-01-13 06:19 | Day surgery (SDC) | payer MEDICAID, SELFPAY ==
[2025-01-08 10:02] VITALS: BMI 41.4
[2025-01-13 07:08] VITALS: BP 126/86; PULSE 75; RESP 18; TEMP 36.2; O2SAT 100
--- NOTE | 2025-01-13 07:27 | EXP.ANES.CKL ---
[facility] Disclaimer: The information contained in this section may have been updated after the patient was seen, as this information can be updated by other users. Medical History (Updated 01/08/25 @ 09:59 by Beverley Roberson RN) GERD (gastroesophageal reflux disease) Adenomyosis Central basal perimembranous ventricular septal defect (VSD) Surgical History S/P cholecystectomy History of ankle surgery History of salpingectomy Family History Other Colon cancer Family history of diabetes mellitus type II Family history of stroke Social History Smoking Status: Never smoker second hand exposure: No alcohol intake: never counseling provided: none substance use type: denies use current occupational status: employed Travel in the last 8 weeks: None household members: spouse housing: house current occupation: [employer] current occupational exposures/hazards: No caffeine: Yes Have you lived/traveled outside [place] in past 30 days?: No Contact w/someone who lives/traveled outside US past 30 days?: No Exposure to someone with infectious disease in past 14 days?: No Do you have a fever (greater than 100.4 F or 38 C)?: No Have you tested positive for COVID-19: No Exposed to someone with COVID-19 in past 14 days?: No Do you have a sore throat?: No Do you have a cough?: No Do you have any weakness?: No Are you experiencing any nausea/vomitting?: No Do you have any diarrhea?: No Are you experiencing any unusual bleeding?: No Do you have any muscle aches/pain?: No Do you have any abdominal pain?: No Are you experiencing loss of taste or smell?: No [facility] Anesthesia Checklist Patient Identification Patient Identification: Arm Band Structural Data Admitted From: Home Planned Operative Procedure/s: Colonoscopy Consent for Planned Operative Procedure(s) Verified: Yes Verified Documents: Surgical Consent and History and Physical NPO Status Verified Time NPO: 01:00 (finished prep) Additional verifications Anesthesia Reactions: No Hx Blood Transfusions: No Blood Transfusion Reaction: No Airway Assessment Mallampati Score:: Class II C-Spine Mobility Assessed: Yes TMJ Mobility Assessed: Yes Dentition: Good Dentition Neurological Assessment Level of Consciousness: Awake, Alert and Appropriate Anesthesia Plan Anesthesia Risk discussed: Yes Anesthesia Plan: Verified ASA Class: III Anesthesia Type: MAC
--- NOTE | 2025-01-13 07:44 | P.HP_ITS ---
History of Present Illness *Admission Date: 01/13/25 *Reason for visit:: Family history of colon cancer (father) at age 50 *History of present illness: Mrs. Varela is a 39-year-old female who is here for initial screening colonoscopy. The patient's father had colon cancer at age 50. The patient has had longstanding IBS diarrhea and lower abdominal discomfort. The examination is deemed medically necessary for screening colonoscopy. The patient has been seen, interviewed and examined prior to the procedure by both myself and the anesthesia provider. [facility] Disclaimer: The information contained in this section may have been updated after the patient was seen, as this information can be updated by other users. Medical History (Updated 01/13/25 @ 07:50 by Geovani Payton II, MD) GERD (gastroesophageal reflux disease) Adenomyosis Central basal perimembranous ventricular septal defect (VSD) Surgical History S/P cholecystectomy History of ankle surgery History of salpingectomy Family History Other Colon cancer Family history of diabetes mellitus type II Family history of stroke Social History Smoking Status: Never smoker second hand exposure: No alcohol intake: never counseling provided: none substance use type: denies use current occupational status: employed Travel in the last 8 weeks: None household members: spouse housing: house current occupation: [employer] current occupational exposures/hazards: No caffeine: Yes Have you lived/traveled outside US in past 30 days?: No Contact w/someone who lives/traveled outside US past 30 days?: No Exposure to someone with infectious disease in past 14 days?: No Do you have a fever (greater than 100.4 F or 38 C)?: No Have you tested positive for COVID-19: No Exposed to someone with COVID-19 in past 14 days?: No Do you have a sore throat?: No Do you have a cough?: No Do you have any weakness?: No Are you experiencing any nausea/vomitting?: No Do you have any diarrhea?: No Are you experiencing any unusual bleeding?: No Do you have any muscle aches/pain?: No Do you have any abdominal pain?: No Are you experiencing loss of taste or smell?: No Other Medical History Have you received the Flu Vaccine for this season: Yes Have you received the Pneumonia Vaccine: No Review of Systems Review of Systems Review of systems (narrative): Negative *Cardiovascular Comments: Negative *Gastrointestinal Comments: Negative *Genitourinary Comments: Negative *Musculoskeletal Comments: Negative *Neurologic Comments: Negative Meds Home Medications and Allergies Home Medications ?Medication ?Instructions ?Recorded ?Confirmed ?Type nebivolol 10 mg tablet 10 mg PO HS bp 01/25/20 01/08/25 History albuterol sulfate 90 mcg/actuation See Protocol inhalation NEEDED 03/31/20 01/08/25 History aerosol inhaler PRN Allergy Symptoms omeprazole 20 mg capsule,delayed 20 mg PO DAILY 03/20/22 01/08/25 History release bupropion HCl 300 mg 24 hr tablet, 300 mg PO DAILY 06/04/23 01/08/25 History extended release ondansetron HCl 4 mg tablet 4 mg PO DIRECTED PRN Nausea 06/04/23 01/08/25 History sodium,potassium,mag sulfates 17.5 See Rx Instructions PO .COMPLEX 01/04/25 01/08/25 Rx gram-3.13 gram-1.6 gram oral soln #354 mL (Suprep Bowel Prep Kit) New Prescriptions to Start Prescriptions: Allergies Allergy/AdvReac Type Severity Reaction Status Date / Time Penicillins Allergy Intermediate I-HIVES Verified 01/13/25 07:07 Exam Data for Last 24 hours Vital signs and Labs for Last 24 Hours: Temp Pulse Resp BP Pulse Ox O2 Del Method 97.1 F L 75 18 126/86 100 Room Air 01/13/25 07:08 01/13/25 07:08 01/13/25 07:08 01/13/25 07:08 01/13/25 07:08 01/13/25 07:08 *Routine HEENT Exam Head: Present normocephalic Eye: Present EOMI and PERRL ENT: Present mucous membranes moist *Routine Neck Exam Neck: Present supple *Routine Respiratory Exam Respiratory: Present CTA bilaterally *Routine Cardiovascular Exam Cardiovascular: Present RRR *Routine Abdominal Exam Abdominal: Present soft and normoactive bowel sounds; Absent tenderness *Routine Rectal Exam Rectal:: deferred *Routine Genitalia Exam Genitalia:: deferred *Routine Extremities Exam Extremities: Absent cyanosis, clubbing or edema *Routine Skin Exam Skin: Present warm; Absent rash *Routine Neurological Exam Neurological: Present alert and oriented X3 Assessment and Plan *Assessment and plan (1) Family history of colon cancer in father: Status: Acute Category: Medical Code(s): Z80.0 - Family history of malignant neoplasm of digestive organs (2) Irritable bowel syndrome with diarrhea: Status: Acute Category: Medical Code(s): K58.0 - Irritable bowel syndrome with diarrhea Plan A/P: 1. Strong family history of colon cancer (father at age 50) is the preprocedural diagnosis. The patient will be anesthetized/sedated using MAC sedation. The patient has been seen and examined. Cardiac and lung assessment prior to the examination is stable. Proceed with planned screening colonoscopy.
[2025-01-13 07:47] VITALS: O2SAT 100
--- NOTE | 2025-01-13 07:51 | HMH.PROCNOTE ---
[facility] Procedure Note Date: 01/13/25 Time: 08:04 Procedure Note:: Colonoscopy Procedure Report: Colonoscopy with cold biopsies Endoscopist: Geovani Payton II, MD Referring physician: Renato Beard M.D. Date of Procedure: January 13, 2025 Equipment: Olympus 190 variable stiffness pediatric colonoscope Sedation: MAC sedation Indication: Mrs. Varela is a 39-year-old female who is here for initial high risk screening colonoscopy. Her father had colon cancer with colon resection at age 50. The patient has had longstanding severe IBS with diarrhea. She never has formed bowel movements. This did worsen significantly after cholecystectomy. She has moderate gassiness, bloating and lower abdominal discomfort. She does take probiotics/prebiotic's. She has used cholestyramine with some success but does not take this daily. She does see occasional blood in the commode from internal hemorrhoids and has some internal hemorrhoidal prolapse. The blood occurs once or twice a month. She also notes mucus with her bowel movements. She reports no weight loss. Procedure: Prior to the procedure, a history and physical exam was performed, and patient's medications and allergies were reviewed. The risks, benefits and alternatives of the sedation and procedure were discussed with the patient. All questions were answered and informed consent was obtained. The patient was brought to the procedure room. Patient identification and proposed procedure were verified by the physician and the nurse. The patient was placed in a left lateral decubitus position and the scope was passed under direct vision. Throughout the procedure, the patient's blood pressure, pulse, and oxygen saturations were monitored continuously. The colonoscopy was accomplished without difficulty. The patient tolerated the procedure well. Findings: On digital rectal examination there was normal rectal tone. There were no external hemorrhoids. The colonoscope was introduced through the anal canal to the rectum and advanced to the cecum. The ileocecal valve and appendiceal orifice were identified. The scope was advanced a short distance into the ileum which appeared grossly normal. The scope was then withdrawn into the colon. The cecum, ascending, transverse, descending, sigmoid and rectum were grossly normal. There were no mucosal abnormalities identified. Cold biopsies were taken from the right colon to rule out microscopic colitis. Upon retroflexion within the rectum there were grade 2 internal hemorrhoids. The preparation was excellent throughout with Creole Preparation Score of 9. The cecal time was 10 minutes. Impression: 1. Normal colonoscopy with intubation of the terminal ileum 2. Grade 2 internal hemorrhoids Plan: I would recommend routine surveillance colonoscopy every 5 years primarily based upon her strong family history (first-degree relative under age 60). I will follow-up the biopsies to rule out microscopic colitis. I would encourage the patient to begin [id number] FiberCon 2 tablets p.o. every morning and Colestid 2 g p.o. nightly. This should help to significantly control her diarrhea. I do feel that she has some bile acid diarrhea. This is characterized by excess bile within the colon. This results in increased secretion and motility. This occurs after gallbladder surgery due to the continuous drainage of bile into the small intestine which overcomes the resorbtive capacity of the lower small intestine to reabsorb this bile and bile salts. This results in diarrhea. The main treatments for bile acid diarrhea are a low-fat diet and taking a medicine called a bile acid binder. If the patient fails to improve, I would consider alosetron. Viberzi would not be indicated since she has had prior cholecystectomy.
[2025-01-13 08:06] VITALS: BP 105/68; PULSE 72; RESP 17; TEMP 36.1; O2SAT 98
[2025-01-13 08:16] VITALS: BP 120/72; PULSE 70; RESP 18; O2SAT 99
[2025-01-13 08:26] VITALS: BP 112/76; PULSE 68; RESP 18; O2SAT 99
[2025-01-13 08:36] VITALS: BP 113/76; PULSE 69; RESP 18; O2SAT 99
== END 2025-01-13 08:45 | disposition home or self-care (01) ==
PROVIDERS: PCP Internal Medicine Adolescent Medicine; Visit Provider Internal Medicine Gastroenterology
PROC: 0DJD8ZZ Inspection of Lower Intestinal Tract, Via Natural or Artificial Opening Endoscopic (ICD-10-PCS; CPT 45378; principal; 2025-01-13 08:00)
DX: K64.1 Second degree hemorrhoids (principal); Z80.0 Family history of malignant neoplasm of digestive organs; K58.0 Irritable bowel syndrome with diarrhea; Z12.11 Encounter for screening for malignant neoplasm of colon
CPT/HCPCS: 45380

== ENCOUNTER 2025-05-06 14:05 | Outpatient (POV) | payer MEDICAID, SELFPAY ==
--- NOTE | 2025-05-06 14:48 | EXP.PAIN.OV ---
HPI Data of Consult Patient: known to practice within the last 3 years Consult date: 05/06/25 Requesting Physician: Ronel Hickman APRN Primary Care Provider: Renato Beard MD Reason for consult: Chronic low back pain, buttock/tailbone pain History of present illness: Ms. Varela is a 39 year old female who presents today for worsening pain. She rates it today as 6 out of 10. Patient does have a longstanding history of chronic back pain and has had multiple injections from our office in the past that did provide significant relief however it has been years. Patient states over the last several months the pain has progressively increased to where it is interfering with her ability perform activities of daily living such as cooking and cleaning. Patient does state that the pain is all primarily on the right side of her buttocks/tailbone but does radiate over into the left side as well. Patient does describe it as a shooting sensation that is worse with prolonged positioning. She does frequently have to change her position after a little bit of time due to the worsening pain. Patient does state that she is also having symptoms that go down into that leg down to the foot. Patient has been doing [id number] medications such as Tylenol and ibuprofen along with heat and ice and topicals with minimal changes. Patient has been seeing a chiropractor for months and going once a week. Patient does state that initially they did discuss the possibility of it being her SI joint however the chiropractor thought possibly it could be even coming from her low back. Patient denies any updated imaging. Patient is interested in any help we may be able to provide as the pain is very severe. She denies any blood thinners, kidney issues or cardiac history. Her Darrin has been reviewed and is appropriate. Pain at rest (0-10 scale): 6 Has patient had previous pain injection?: No Conservative treatment options previously tried: Home exercise plan (Longer than 12 weeks) and Chiropractor (Longer than 6 weeks) cc:: CC: Ronel Hickman APRN [facility] Disclaimer: The information contained in this section may have been updated after the patient was seen, as this information can be updated by other users. 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) Surgical History S/P cholecystectomy History of ankle surgery History of salpingectomy Family History Other Colon cancer Family history of diabetes mellitus type II Family history of stroke Social History Smoking Status: Never smoker second hand exposure: No alcohol intake: never counseling provided: none substance use type: denies use current occupational status: employed Travel in the last 8 weeks?: None household members: spouse housing: house current occupation: [employer] current occupational exposures/hazards: No caffeine: Yes Have you lived/traveled outside [place] in past 30 days?: No Contact w/someone who lives/traveled outside US past 30 days?: No Exposure to someone with infectious disease in past 14 days?: No Do you have a fever (greater than 100.4 F or 38 C)?: No Have you tested positive for COVID-19?: No Exposed to someone with COVID-19 in past 14 days?: No Do you have a sore throat?: No Do you have a cough?: No Do you have any weakness?: No Do you have any diarrhea?: No Are you experiencing any unusual bleeding?: No Do you have any muscle aches/pain?: No Do you have any abdominal pain?: No Are you experiencing loss of taste or smell?: No Review of Systems Review of Systems Review of systems:: pertinent systems reviewed and negative unless documented below Review of systems (narrative): Review of Systems: General: No recent weight changes, no fever, no sleep disturbances Respiratory: No cough, no shortness of air, no recurring pulmonary infections Cardiovascular/peripheral vascular: No chest pain, no palpitations, no edema, no shortness of breath Gastrointestinal: No new onset incontinence, normal bowel movements reported Genitourinary: No new onset incontinence Musculoskeletal: Chronic back pain, buttock/tailbone pain, right leg pain Psychiatric: [Normal mood/affect] Neurological: [Denies weakness in extremities], [denies balance issues] Meds Home Medications and Allergies Home Medications ?Medication ?Instructions ?Recorded ?Confirmed ?Type nebivolol 10 mg tablet 10 mg PO HS bp 01/25/20 01/08/25 History albuterol sulfate 90 mcg/actuation See Protocol inhalation NEEDED 03/31/20 01/08/25 History aerosol inhaler PRN Allergy Symptoms omeprazole 20 mg capsule,delayed 20 mg PO DAILY 03/20/22 01/08/25 History release bupropion HCl 300 mg 24 hr tablet, 300 mg PO DAILY 06/04/23 01/08/25 History extended release ondansetron HCl 4 mg tablet 4 mg PO DIRECTED PRN Nausea 06/04/23 01/08/25 History sodium,potassium,mag sulfates 17.5 See Rx Instructions PO .COMPLEX 01/04/25 01/08/25 Rx gram-3.13 gram-1.6 gram oral soln #354 mL (Suprep Bowel Prep Kit) colestipol 1 gram tablet (Colestid) 2 g (2 x 1 gram) PO .At bedtime 01/13/25 Rx #60 tabs budesonide 3 mg See Rx Instructions .Route 04/28/25 Rx capsule,delayed,extended release .COMPLEX #126 caps diclofenac sodium 75 mg 75 mg PO BID #28 tabs 05/06/25 Rx tablet,delayed release methocarbamol 500 mg tablet 500 mg PO TID #90 tabs 05/06/25 Rx New Prescriptions to Start Prescriptions: diclofenac sodium VickRonel A methocarbamol Ronel Hickman Allergies Allergy/AdvReac Type Severity Reaction Status Date / Time Penicillins Allergy Intermediate I-HIVES Verified 01/13/25 07:07 Objective Narrative: Physical Exam: General: Alert and oriented x3, no acute distress, pleasant and cooperative Lungs: Respirations even and unlabored, symmetrical chest expansion Eyes: PERRL Musculoskeletal: Flexion and extension of sacrum [spine] somewhat guarded secondary to pain, point tenderness along her tailbone, negative tenderness on her SI joints and negative Pierce's Neurological: Speech clear, no gross sensory deficit Assessment and Plan *Assessment and plan (1) Coccygeal pain: Status: Acute Category: Medical Code(s): M53.3 - Sacrococcygeal disorders, not elsewhere classified (2) Low back pain: Status: Acute Category: Medical Code(s): M54.50 - Low back pain, unspecified (3) Lumbar radiculopathy: Status: Acute Category: Medical Code(s): M54.16 - Radiculopathy, lumbar region Plan Patient is experiencing significant pain in and around her buttocks and tailbone with point tenderness. Patient did have negative point tenderness on her SI joints as well as negative Pierce's. I did discuss with the patient and her symptoms that it does seem that she would get significant relief with a caudal epidural as the pain is worse with prolonged positioning at her tailbone. Patient was reviewed over risk and benefits and she would like to proceed forward with this plan of care. We do not have any upcoming openings for this injection and patient was willing to go to our [place] [facility] location to get this done sooner due to the worsening pain symptoms. Patient has tried oral medication such as Tylenol and ibuprofen along with heat and ice and topicals, chiropractor therapy and continued at home stretching exercise for longer than 6 weeks that was physician guided. Patient does have a longstanding history of chronic back pain that is going on for longer than a year. I will send in a prescription of methocarbamol 500 mg 3 times daily with a 1 month supply as well as send in a 2-week dose of diclofenac 75 mg twice daily. Patient was counseled to discontinue all other NSAIDs while taking this medication and to take it with food to minimize GI upset. Patient will be scheduled for a caudal epidural under fluoroscopy. Patient agrees with this plan of care. I did also order x-ray imaging of her lumbar and sacrum/coccyx spine. Patient has been instructed to contact the clinic with any concerns before the next appointment. Dr. Gacria has reviewed this note and agrees with this plan of care. This note was dictated using voice recognition software and make contain errors or omissions. All injections are used with Lidocaine, Bupivacaine and dexamethasone. Occasionally urine drug screen is needed to verify patient's compliance with our office pain contract. This is ordered based off specific treatments related to chronic pain with the potential to abuse certain medications.
--- NOTE | 2025-05-06 14:50 | XR_ITS ---
FINAL REPORT CLINICAL HISTORY: Low back pain, buttocks pain FINDINGS: AP and lateral views of the lumbar spine were obtained. There is no prior exam for comparison. There is no acute fracture or malalignment. Vertebral body height is preserved. Disc space height is preserved. No acute paraspinal abnormality. IMPRESSION: No acute osseous abnormality of the lumbar spine. Reviewed, Interpreted and Dictated by Paulette Rosario MD Transcribed by Tamiko Jones Authenticated and [facility]
--- NOTE | 2025-05-06 14:50 | XR_ITS ---
FINAL REPORT CLINICAL HISTORY: Buttocks/tailbone pain FINDINGS: AP and lateral views of the sacrum and coccyx were obtained. There is no prior exam for comparison. There is no acute fracture or other acute osseous abnormality. There is mild degenerative disease of the sacroiliac joints. No acute soft tissue abnormality is present. IMPRESSION: Degenerative disease of the sacroiliac joints. Reviewed, Interpreted and Dictated by Paulette Rosario MD Transcribed by Tamiko Jones Authenticated and [facility]
[2025-05-06 15:37] VITALS: BP 138/90; PULSE 103; RESP 14; O2SAT 99; BMI 40.3
[2025-05-10 15:59] VITALS: BMI 40.0
== END 2025-05-06 23:59 | disposition home or self-care (01) ==
PROVIDERS: PCP Internal Medicine Adolescent Medicine; Visit Provider Nurse Practitioner Family
DX: M54.50 Low back pain, unspecified (principal); G89.29 Other chronic pain; M53.3 Sacrococcygeal disorders, not elsewhere classified
CPT/HCPCS: 72100; 72220; 99212; G0463

== ENCOUNTER 2025-08-07 11:53 | Outpatient (CLI) | payer MEDICAID, SELFPAY ==
[2025-08-07 12:39] LABS: Hematocrit 38.6 % (37.0-47.0); Hemoglobin 12.4 g/dL (12.2-16.2); Immature Granulocytes % 0.5 %; Mean Corpuscular HGB Conc 32.1 g/dL (31.8-35.4); Mean Corpuscular Hemoglobin 28.1 pg (27.0-31.2); Mean Corpuscular Volume 87.3 fl (81-99); Nucleated Red Blood Cells % 0 %; Platelet Count 195 K/mm3 (142-424); Red Blood Count 4.42 M/mm3 (4.20-5.40); Red Cell Distribution Width-SD 43.5 fL; White Blood Count 12.3 K/mm3 (4.8-10.8)
[2025-08-07 13:51] LABS: Alanine Aminotransferase 63 U/L (12-78); Albumin Level 3.4 g/dl (3.5-5.0); Albumin/Globulin Ratio 0.9 (1.1-1.8); Alkaline Phosphatase 147 U/L (38-126); Anion Gap 13.3 mEq/L (5-15); Aspartate Amino Transferase 71 U/L (14-36); Bilirubin,Total 0.9 mg/dl (0.2-1.3); Blood Urea Nitrogen 14 mg/dl (7-17); Calcium 8.8 mg/dl (8.4-10.2); Carbon Dioxide 22 mmol/L (22.0-30.0); Chloride 105 mmol/L (98-107); Creatinine,Serum 0.90 mg/dl (0.52-1.04); Estimated Glomerular Filt Rate 70 ml/min (>60); GFR (African American) 85 ML/MIN (>60); Globulin 3.7 g/dL (1.3-3.2); Glucose 164 mg/dl (74-100); Potassium 4.3 mmoL/L (3.5-5.1); Sodium 136 mmol/L (136-145); Total Protein,Serum 7.1 g/dl (6.3-8.2)
[2025-08-07 13:56] LABS: C-Reactive Protein 202.4 mg/L (0-4)
== END 2025-08-07 23:59 | disposition home or self-care (01) ==
LOC: LAB 11:54
PROVIDERS: PCP Internal Medicine Adolescent Medicine; Visit Provider Nurse Practitioner Family
DX: N39.0 Urinary tract infection, site not specified (principal); R50.9 Fever, unspecified
CPT/HCPCS: 36415; 80053; 85025; 85651; 86140; 87040

== ENCOUNTER 2025-08-07 11:54 | Outpatient (CLI) | payer MEDICAID, SELFPAY | END 2025-08-07 23:59 | disposition home or self-care (01) | LOC: LAB.DROPOF 11:55 | PROVIDERS: PCP Internal Medicine Adolescent Medicine; Visit Provider Nurse Practitioner Family | DX: N39.0 Urinary tract infection, site not specified (principal) | CPT/HCPCS: 87086 ==

== ENCOUNTER 2025-08-31 10:50 | Outpatient (CLI) | payer MEDICAID, SELFPAY ==
--- NOTE | 2025-08-31 10:54 | CT_ITS ---
FINAL REPORT TECHNIQUE: Thin section axial images were obtained from the lung bases to the pubic symphysis without IV contrast. Coronal reconstruction images were obtained from the axial data. Exam was performed using dose reduction technique. CLINICAL HISTORY: LILIA FLANK PAIN/ HEMATURIA COMPARISON: 01/30/2018 FINDINGS: There are several small nonobstructing left renal stones. These have not significantly changed since prior exam. There is no hydronephrosis. The gallbladder is absent. The remaining unenhanced solid abdominal organs are unremarkable. There is no evidence of small bowel obstruction. The appendix is normal. The uterus is unremarkable. There is a hypodense right ovarian lesion, likely a functional cyst. There is no lymphadenopathy or ascites. No acute osseous abnormality is identified. IMPRESSION: Nonobstructing left renal stones. Right ovarian lesion, likely a functional cyst. This is not an unexpected finding for patient of this age. Reviewed, Interpreted and Dictated by Paulette Rosario MD Transcribed by Tamiko Jones Authenticated and [facility]
--- OUTSIDE RECORDS SUMMARY | 2025-08-31 11:00 | XMS_ITS ---
Author Organization Unknown ENCOUNTERS Encounter Performer Location Date Diagnosis Diagnosis Status Emergency [place] [id number] [facility] [address] [id number] [place] *Note: Encounters from your own facility or health system may be excluded. Allergies, Adverse Reactions, Alerts Allergen Type Severity Identification Date Penicillins drug allergy 3 [id number] Medications Name Date Quantity Days Supplied GPI Number
== END 2025-08-31 23:59 | disposition home or self-care (01) ==
LOC: RAD 10:52
PROVIDERS: PCP Internal Medicine Adolescent Medicine; Visit Provider Internal Medicine Adolescent Medicine
DX: N20.0 Calculus of kidney (principal); N83.9 Noninflammatory disorder of ovary, fallopian tube and broad ligament, unspecified
CPT/HCPCS: 74176